=== PATIENT | female | born 1945 | race Caucasian/White ===

== ENCOUNTER → 2018-05-21 07:54 | Outpatient (CLI) | payer MEDICARE, OTHER, SELFPAY ==
[2018-05-21 09:15] LABS: Add Manual Diff / Slide Review NO; Basophils Percent Auto 0.9 % (0-2); Eosinophils Percent Auto 1.8 % (2-4); Hematocrit 39.5 % (36-46); Hemoglobin 13.3 g/dL (12.0-16.0); Mean Corpuscular HGB Conc 33.6 % (30-36); Mean Corpuscular Hemoglobin 29.6 PG (26-34); Monocytes Percent Auto 7.4 % (3-14); Neutrophils Absolute Auto 4000 /uL (3000-5900); Neutrophils Percent Auto 55.9 % (50-75); Platelet Count 181 X10^3/uL (150-400); Red Blood Cell Count 4.49 X10^6/uL (4.0-5.2); Red Cell Distribution Width 13.6 % (11.6-14.8); White Blood Cell Count 7.1 X10^3/uL (4.5-11.0)
[2018-05-21 09:41] LABS: Alanine Aminotransferase 24 IU/L (9-52); Albumin Globulin Ratio 1.3 (1.0-2.8); Alkaline Phosphatase 96 U/L (38-126); Aspartate Aminotransferase 21 IU/L (14-36); BUN Creatinine Ratio 37.8 (6-22); Bilirubin Total 0.4 mg/dL (0.2-1.3); Blood Urea Nitrogen 34 mg/dL (7-17); Calcium 10.2 mg/dL (8.4-10.2); Carbon Dioxide 32 mmol/L (22-32); Chloride 100 mmol/L (98-107); Cholesterol 150 mg/dL (140-199); Estimated Glomerular Filt Rate > 60.0 mL/min (>60); Glucose 102 mg/dL (80-110); HDL Cholesterol 55 mg/dL (40-60); HEMOLYSIS < 15 (0-50); LDL Cholesterol Calculated 71 mg/dL (<100); Sodium 140 mmol/L (137-145); Triglycerides 118 mg/dL (35-150)
[2018-05-21 10:14] LABS: Free T4, Direct Thyroxine 1.27 ng/dL (0.78-2.19)
[2018-05-21 10:28] LABS: Thyroid Stimulating Hormone 0.27 uIU/mL (0.47-4.68)
== END ==
PROVIDERS: PCP Family Medicine; Visit Provider Family Medicine
DX: E03.9 Hypothyroidism, unspecified (principal); E78.5 Hyperlipidemia, unspecified
CPT/HCPCS: 36415; 80053; 80061; 84439; 84443; 85025

== ENCOUNTER → 2018-10-02 08:53 | Outpatient (CLI) | payer MEDICARE, OTHER, SELFPAY ==
[2018-10-02 09:35] LABS: Add Manual Diff / Slide Review NO; Basophils Percent Auto 1.3 % (0-2); Hematocrit 40.1 % (36-46); Hemoglobin 13.3 g/dL (12.0-16.0); Lymphocytes Percent Auto 49.3 % (25-40); Mean Corpuscular HGB Conc 33.2 % (30-36); Mean Corpuscular Hemoglobin 30.7 PG (26-34); Mean Corpuscular Volume 92.3 fL (80-100); Monocytes Percent Auto 8.5 % (3-14); Neutrophils Absolute Auto 2000 /uL (1500-7000); Neutrophils Percent Auto 38.9 % (50-75); Platelet Count 197 X10^3/uL (150-400); Red Blood Cell Count 4.34 X10^6/uL (4.0-5.2)
[2018-10-02 09:49] LABS: Alanine Aminotransferase 32 IU/L (9-52); Albumin 4.1 g/dL (3.5-5.0); Albumin Globulin Ratio 1.4 (1.0-2.8); Alkaline Phosphatase 93 U/L (38-126); Aspartate Aminotransferase 25 IU/L (14-36); BUN Creatinine Ratio 26.3 (6-22); Bilirubin Total 0.4 mg/dL (0.2-1.3); Blood Urea Nitrogen 21 mg/dL (7-17); Calcium 9.7 mg/dL (8.4-10.2); Carbon Dioxide 30 mmol/L (22-32); Chloride 103 mmol/L (98-107); Cholesterol 158 mg/dL (140-199); Estimated Glomerular Filt Rate > 60.0 mL/min (>60); Glucose 105 mg/dL (80-110); HDL Cholesterol 49 mg/dL (40-60); HEMOLYSIS < 15 (0-50); LDL Cholesterol Calculated 84 mg/dL (<100); Potassium 4.3 mmol/L (3.4-5.1); Sodium 140 mmol/L (137-145); Total Protein 7.1 g/dL (6.3-8.2); Triglycerides 125 mg/dL (35-150)
[2018-10-02 10:25] LABS: Free T4, Direct Thyroxine 1.38 ng/dL (0.78-2.19)
[2018-10-02 10:39] LABS: Thyroid Stimulating Hormone 0.03 uIU/mL (0.47-4.68)
== END ==
PROVIDERS: PCP Family Medicine; Visit Provider Family Medicine
DX: E78.5 Hyperlipidemia, unspecified (principal); M85.9 Disorder of bone density and structure, unspecified; F41.1 Generalized anxiety disorder; R73.01 Impaired fasting glucose; D64.9 Anemia, unspecified; K22.70 Barrett's esophagus without dysplasia; E03.9 Hypothyroidism, unspecified; E05.00 Thyrotoxicosis with diffuse goiter without thyrotoxic crisis or storm; K21.9 Gastro-esophageal reflux disease without esophagitis
CPT/HCPCS: 36415; 80053; 80061; 84439; 84443; 85025

== ENCOUNTER → 2018-10-10 07:34 | Outpatient (CLI) | payer MEDICARE, OTHER, SELFPAY ==
--- NOTE | 2018-10-10 | DI.MG.S_ITS ---
BILATERAL DIGITAL SCREENING MAMMOGRAM 3D/2D WITH CAD: 10/10/2018 CLINICAL: Routine screening. Family history of breast cancer. Comparison is made to exams dated: 10/04/2017 mammogram, 10/17/2016 mammogram, 09/28/2015 mammogram, and 10/17/2014 mammogram - [facility]. There are scattered fibroglandular elements in both breasts. Current study was also evaluated with a Computer Aided Detection (CAD) system. There is a linear scar marker overlying the left breast. There also are benign vascular calcifications in the right breast. No significant masses, calcifications, or other findings are seen in either breast. There has been no significant interval change. IMPRESSION: There is no mammographic evidence of malignancy. A 1 year screening mammogram is recommended. This exam was interpreted at Station ID: [id number]. NOTE: For mammograms, a report in lay terms will be sent to the patient. Approximately 15% of breast malignancies will not be visualized mammographically. In the management of a palpable breast mass, a negative mammogram must not discourage biopsy of a clinically suspicious lesion. Electronically Signed By: Dariusz Mills M.D. ecl/:10/10/2018 11:09:32 letter sent: Normal Exam ACR BI-RADS Category 2: Benign Finding(s) 3342F
== END ==
PROVIDERS: PCP Family Medicine; Visit Provider Family Medicine
DX: Z12.31 Encounter for screening mammogram for malignant neoplasm of breast (principal); Z80.3 Family history of malignant neoplasm of breast
CPT/HCPCS: 77063; 77067

== ENCOUNTER → 2019-01-02 09:52 | Outpatient (CLI) | payer MEDICARE, OTHER, SELFPAY ==
[2019-01-02 10:51] LABS: Alanine Aminotransferase 33 IU/L (9-52); Albumin 4.2 g/dL (3.5-5.0); Albumin Globulin Ratio 1.3 (1.0-2.8); Alkaline Phosphatase 88 U/L (38-126); Aspartate Aminotransferase 27 IU/L (14-36); BUN Creatinine Ratio 26.3 (6-22); Bilirubin Total 0.6 mg/dL (0.2-1.3); Blood Urea Nitrogen 21 mg/dL (7-17); Carbon Dioxide 31 mmol/L (22-32); Chloride 103 mmol/L (98-107); Cholesterol 183 mg/dL (140-199); Estimated Glomerular Filt Rate > 60.0 mL/min (>60); Globulin 3.2 g/dL (1.7-4.1); Glucose 105 mg/dL (80-110); HDL Cholesterol 53 mg/dL (40-60); HEMOLYSIS 25 (0-50); LDL Cholesterol Calculated 97 mg/dL (<100); Potassium 4.5 mmol/L (3.4-5.1); Sodium 138 mmol/L (137-145); Total Protein 7.4 g/dL (6.3-8.2); Triglycerides 166 mg/dL (35-150)
[2019-01-02 12:15] LABS: Free T4, Direct Thyroxine 1.43 ng/dL (0.78-2.19); Hemoglobin A1C% w Est Avg Glu 5.8 % (4.0-6.0)
[2019-01-02 12:29] LABS: Thyroid Stimulating Hormone 0.05 uIU/mL (0.47-4.68)
== END ==
PROVIDERS: PCP Family Medicine; Visit Provider Family Medicine
DX: E78.5 Hyperlipidemia, unspecified (principal); E03.9 Hypothyroidism, unspecified; R73.01 Impaired fasting glucose
CPT/HCPCS: 36415; 80053; 80061; 83036; 84439; 84443

== ENCOUNTER → 2019-06-07 08:00 | Outpatient (CLI) | payer MEDICARE, OTHER, SELFPAY ==
[2019-06-07 08:30] LABS: Add Manual Diff / Slide Review NO; Basophils Absolute Auto 100 /uL (0-100); Basophils Percent Auto 1.3 % (0-2); Eosinophils Absolute Auto 100 /uL (0-450); Eosinophils Percent Auto 1.2 % (2-4); Hematocrit 40.1 % (36-46); Hemoglobin 13.1 g/dL (12.0-16.0); Lymphocytes Absolute Auto 2500 /uL (1100-4500); Lymphocytes Percent Auto 47.1 % (25-40); Mean Corpuscular HGB Conc 32.7 % (30-36); Mean Corpuscular Hemoglobin 29.6 PG (26-34); Mean Corpuscular Volume 90.6 fL (80-100); Monocytes Absolute Auto 400 /uL (0-900); Monocytes Percent Auto 6.6 % (3-14); Neutrophils Absolute Auto 2400 /uL (1500-7000); Neutrophils Percent Auto 43.8 % (50-75); Platelet Count 222 X10^3/uL (150-400); Red Blood Cell Count 4.42 X10^6/uL (4.0-5.2); Red Cell Distribution Width 14.3 % (11.6-14.8); White Blood Cell Count 5.4 X10^3/uL (4.5-11.0)
[2019-06-07 08:53] LABS: Hemoglobin A1C% w Est Avg Glu 5.9 % (4.0-6.0)
[2019-06-07 09:24] LABS: Alanine Aminotransferase 27 IU/L (9-52); Albumin Globulin Ratio 1.4 (1.0-2.8); Alkaline Phosphatase 100 U/L (38-126); Aspartate Aminotransferase 27 IU/L (14-36); BUN Creatinine Ratio 28.8 (6-22); Bilirubin Total 0.7 mg/dL (0.2-1.3); Blood Urea Nitrogen 23 mg/dL (7-17); Calcium 10.1 mg/dL (8.4-10.2); Carbon Dioxide 28 mmol/L (22-32); Chloride 102 mmol/L (98-107); Cholesterol 192 mg/dL (140-199); Estimated Glomerular Filt Rate > 60.0 mL/min (>60); Globulin 2.8 g/dL (1.7-4.1); Glucose 104 mg/dL (80-110); HDL Cholesterol 90 mg/dL (40-60); HEMOLYSIS < 15 (0-50); LDL Cholesterol Calculated 75 mg/dL (<100); Potassium 4.2 mmol/L (3.4-5.1); Sodium 138 mmol/L (137-145); Total Protein 6.8 g/dL (6.3-8.2); Triglycerides 133 mg/dL (35-150)
[2019-06-07 09:54] LABS: Cortisol AM (Before 10AM) 13.9 ug/dL (4.46-22.7)
[2019-06-07 09:55] LABS: TSH w/ Reflex to FT4 2.67 uIU/mL (0.47-4.68); Thyroid Stimulating Hormone 2.67 uIU/mL (0.47-4.68)
== END ==
PROVIDERS: PCP Family Medicine; Visit Provider Internal Medicine Endocrinology, Diabetes & Metabolism
DX: E03.9 Hypothyroidism, unspecified (principal); D64.9 Anemia, unspecified; R73.01 Impaired fasting glucose; E78.5 Hyperlipidemia, unspecified; R79.9 Abnormal finding of blood chemistry, unspecified; E89.0 Postprocedural hypothyroidism; R73.9 Hyperglycemia, unspecified; R53.82 Chronic fatigue, unspecified
CPT/HCPCS: 36415; 80053; 80061; 82533; 83036; 84443; 85025

== ENCOUNTER → 2019-10-03 07:33 | Outpatient (CLI) | payer MEDICARE, OTHER, SELFPAY ==
[2019-10-03 08:55] LABS: Thyroid Stimulating Hormone 2.85 uIU/mL (0.47-4.68)
== END ==
PROVIDERS: PCP Family Medicine; Visit Provider Internal Medicine Endocrinology, Diabetes & Metabolism
DX: R73.03 Prediabetes (principal); E89.0 Postprocedural hypothyroidism
CPT/HCPCS: 36415; 83036; 84443

== ENCOUNTER → 2019-10-14 11:20 | Outpatient (CLI) | payer MEDICARE, OTHER, SELFPAY ==
--- NOTE | 2019-10-14 | DI.MG.S_ITS ---
BILATERAL DIGITAL SCREENING MAMMOGRAM 3D/2D WITH CAD: 10/14/2019 CLINICAL: Routine screening. Family history of breast cancer. Comparison is made to exams dated: 10/10/2018 mammogram - [facility], 10/04/2017 mammogram, and 10/17/2016 mammogram - [facility]. There are scattered fibroglandular elements in both breasts. Current study was also evaluated with a Computer Aided Detection (CAD) system. There are benign vascular calcifications in the right breast. There also are benign post operative findings in the left breast. No significant masses, calcifications, or other findings are seen in either breast. There has been no significant interval change. IMPRESSION: There is no mammographic evidence of malignancy. A 1 year screening mammogram is recommended. This exam was interpreted at Station ID: [id number]. NOTE: For mammograms, a report in lay terms will be sent to the patient. Approximately 15% of breast malignancies will not be visualized mammographically. In the management of a palpable breast mass, a negative mammogram must not discourage biopsy of a clinically suspicious lesion. Electronically Signed By: Delano mendez/jose:10/15/2019 11:10:53 letter sent: Normal Exam ACR BI-RADS Category 2: Benign Finding(s) 3342F
== END ==
PROVIDERS: PCP Family Medicine; Visit Provider Family Medicine
DX: Z12.31 Encounter for screening mammogram for malignant neoplasm of breast (principal); Z80.3 Family history of malignant neoplasm of breast
CPT/HCPCS: 77063; 77067

== ENCOUNTER → 2019-10-24 13:47 | Outpatient (CLI) | payer MEDICARE, OTHER, SELFPAY | PROVIDERS: PCP Family Medicine; Visit Provider Family Medicine | DX: M85.852 Other specified disorders of bone density and structure, left thigh (principal); Z78.0 Asymptomatic menopausal state; E07.9 Disorder of thyroid, unspecified; G47.30 Sleep apnea, unspecified; G47.00 Insomnia, unspecified; Z90.722 Acquired absence of ovaries, bilateral; Z82.62 Family history of osteoporosis; Z87.898 Personal history of other specified conditions | CPT/HCPCS: 77080; 99214 ==

== ENCOUNTER → 2020-04-04 09:07 | Outpatient (CLI) | payer MEDICARE, OTHER, SELFPAY ==
[2020-04-04 11:03] LABS: Add Manual Diff / Slide Review NO; Basophils Absolute Auto 100 /uL (0-100); Basophils Percent Auto 1.2 % (0-2); Eosinophils Absolute Auto 100 /uL (0-450); Eosinophils Percent Auto 1.7 % (2-4); Hematocrit 38.7 % (36-46); Hemoglobin 12.9 g/dL (12.0-16.0); Lymphocytes Absolute Auto 2000 /uL (1100-4500); Lymphocytes Percent Auto 45.4 % (25-40); Mean Corpuscular HGB Conc 33.2 % (30-36); Mean Corpuscular Volume 90.4 fL (80-100); Monocytes Absolute Auto 400 /uL (0-900); Monocytes Percent Auto 8.8 % (3-14); Neutrophils Absolute Auto 1900 /uL (1500-7000); Neutrophils Percent Auto 42.9 % (50-75); Platelet Count 203 X10^3/uL (150-400); Red Blood Cell Count 4.28 X10^6/uL (4.0-5.2); Red Cell Distribution Width 13.8 % (11.6-14.8); White Blood Cell Count 4.5 X10^3/uL (4.5-11.0)
[2020-04-04 11:04] LABS: Hemoglobin A1C% w Est Avg Glu 6.2 % (4.0-6.0)
[2020-04-04 11:08] LABS: Alanine Aminotransferase 17 IU/L (<35); Albumin 4.2 g/dL (3.5-5.0); Albumin Globulin Ratio 1.5 (1.0-2.8); Alkaline Phosphatase 89 U/L (38-126); Aspartate Aminotransferase 27 IU/L (14-36); BUN Creatinine Ratio 33.8 (6-22); Bilirubin Total 0.6 mg/dL (0.2-1.3); Blood Urea Nitrogen 26 mg/dL (7-17); Calcium 10.4 mg/dL (8.4-10.2); Carbon Dioxide 29 mmol/L (22-32); Chloride 102 mmol/L (98-107); Cholesterol 170 mg/dL (140-199); Estimated Glomerular Filt Rate > 60.0 mL/min (>60); Globulin 2.8 g/dL (1.7-4.1); Glucose 107 mg/dL (80-110); HDL Cholesterol 73 mg/dL (40-60); HEMOLYSIS < 15 (0-50); LDL Cholesterol Calculated 78 mg/dL (<100); Potassium 4.8 mmol/L (3.4-5.1); Sodium 136 mmol/L (137-145); Triglycerides 95 mg/dL (35-150)
[2020-04-04 11:36] LABS: Thyroid Stimulating Hormone 3.37 uIU/mL (0.47-4.68)
[2020-04-05 18:39] LABS: COVID19 Sendout Not Detected (Not Detect)
== END ==
PROVIDERS: Physician Assistant; PCP Family Medicine; Referring Provider Family Medicine; Visit Provider Family Medicine
DX: Z01.812 Encounter for preprocedural laboratory examination (principal); E78.5 Hyperlipidemia, unspecified
CPT/HCPCS: 36415; 80053; 80061; 83036; 84439; 84443; 85025; 87635

== ENCOUNTER → 2020-08-26 11:06 | Outpatient (CLI) | payer MEDICARE, OTHER, SELFPAY ==
[2020-08-26 11:44] LABS: Add Manual Diff / Slide Review NO; Basophils Absolute Auto 0 /uL (0-100); Basophils Percent Auto 1.1 % (0-2); Eosinophils Absolute Auto 0 /uL (0-450); Hematocrit 38.8 % (36-46); Hemoglobin 12.5 g/dL (12.0-16.0); Lymphocytes Absolute Auto 1700 /uL (1100-4500); Lymphocytes Percent Auto 40.4 % (25-40); Mean Corpuscular HGB Conc 32.2 % (30-36); Mean Corpuscular Hemoglobin 28.7 PG (26-34); Monocytes Absolute Auto 400 /uL (0-900); Monocytes Percent Auto 8.6 % (3-14); Neutrophils Absolute Auto 2000 /uL (1500-7000); Neutrophils Percent Auto 48.9 % (50-75); Platelet Count 199 X10^3/uL (150-400); Red Blood Cell Count 4.35 X10^6/uL (4.0-5.2); Red Cell Distribution Width 15.2 % (11.6-14.8); White Blood Cell Count 4.1 X10^3/uL (4.5-11.0)
[2020-08-26 11:50] LABS: Hemoglobin A1C% w Est Avg Glu 6.4 % (4.0-6.0)
[2020-08-26 11:58] LABS: Alanine Aminotransferase 16 IU/L (<35); Albumin 4.3 g/dL (3.5-5.0); Albumin Globulin Ratio 1.4 (1.0-2.8); Alkaline Phosphatase 84 U/L (38-126); Aspartate Aminotransferase 23 IU/L (14-36); BUN Creatinine Ratio 25.3 (6-22); Bilirubin Total 0.6 mg/dL (0.2-1.3); Blood Urea Nitrogen 20 mg/dL (7-17); Calcium 9.6 mg/dL (8.4-10.2); Carbon Dioxide 31 mmol/L (22-32); Chloride 104 mmol/L (98-107); Cholesterol 158 mg/dL (140-199); Estimated Glomerular Filt Rate > 60.0 mL/min (>60); Globulin 3.1 g/dL (1.7-4.1); Glucose 116 mg/dL (80-110); HDL Cholesterol 62 mg/dL (40-60); HEMOLYSIS < 15 (0-50); LDL Cholesterol Calculated 74 mg/dL (<100); Potassium 4.2 mmol/L (3.4-5.1); Sodium 136 mmol/L (137-145); Total Protein 7.4 g/dL (6.3-8.2); Triglycerides 109 mg/dL (35-150)
[2020-08-26 12:32] LABS: Ferritin 14 ng/mL (11-264)
[2020-08-26 14:31] LABS: Thyroid Stimulating Hormone 1.85 uIU/mL (0.47-4.68)
== END ==
PROVIDERS: PCP Family Medicine; Referring Provider Family Medicine; Visit Provider Family Medicine
DX: E61.1 Iron deficiency (principal); R73.01 Impaired fasting glucose; E78.5 Hyperlipidemia, unspecified; E03.9 Hypothyroidism, unspecified; E05.00 Thyrotoxicosis with diffuse goiter without thyrotoxic crisis or storm; D64.9 Anemia, unspecified
CPT/HCPCS: 36415; 80053; 80061; 82728; 83036; 84439; 84443; 85025

== ENCOUNTER → 2020-10-15 10:29 | Outpatient (CLI) | payer MEDICARE, OTHER, SELFPAY ==
--- NOTE | 2020-10-15 | DI.MG.S_ITS ---
BILATERAL DIGITAL SCREENING MAMMOGRAM 3D/2D WITH CAD: 10/15/2020 CLINICAL: Routine screening. Family history of breast cancer. Comparison is made to exams dated: 10/14/2019 mammogram, 10/10/2018 mammogram - [facility], and 10/04/2017 mammogram - [facility]. There are scattered fibroglandular elements in both breasts. Current study was also evaluated with a Computer Aided Detection (CAD) system. There are benign vascular calcifications in the right breast. There also are benign post operative findings in the left breast. No significant masses, calcifications, or other findings are seen in either breast. There has been no significant interval change. IMPRESSION: BENIGN There is no mammographic evidence of malignancy. A 1 year screening mammogram is recommended. This exam was interpreted at Station ID: [id number]. NOTE: For mammograms, a report in lay terms will be sent to the patient. Approximately 15% of breast malignancies will not be visualized mammographically. In the management of a palpable breast mass, a negative mammogram must not discourage biopsy of a clinically suspicious lesion. Electronically Signed By: Bradley moreno/jose:10/15/2020 11:08:19 letter sent: Normal Exam ACR BI-RADS Category 2: Benign Finding(s) 3342F
== END ==
PROVIDERS: PCP Family Medicine; Referring Provider Family Medicine; Visit Provider Family Medicine
DX: Z12.31 Encounter for screening mammogram for malignant neoplasm of breast (principal)
CPT/HCPCS: 77063; 77067

== ENCOUNTER → 2020-12-10 10:01 | Outpatient (CLI) | payer MEDICARE, OTHER, SELFPAY ==
[2020-12-10 10:58] LABS: Add Manual Diff / Slide Review NO; Basophils Absolute Auto 100 /uL (0-100); Eosinophils Absolute Auto 100 /uL (0-450); Eosinophils Percent Auto 1.6 % (2-4); Hematocrit 37.7 % (36-46); Hemoglobin 12.5 g/dL (12.0-16.0); Lymphocytes Absolute Auto 2100 /uL (1100-4500); Lymphocytes Percent Auto 40.7 % (25-40); Mean Corpuscular HGB Conc 33.2 % (30-36); Mean Corpuscular Hemoglobin 29.4 PG (26-34); Mean Corpuscular Volume 88.8 fL (80-100); Monocytes Absolute Auto 400 /uL (0-900); Monocytes Percent Auto 7.9 % (3-14); Neutrophils Absolute Auto 2500 /uL (1500-7000); Neutrophils Percent Auto 48.8 % (50-75); Platelet Count 203 X10^3/uL (150-400); Red Blood Cell Count 4.24 X10^6/uL (4.0-5.2); Red Cell Distribution Width 15.6 % (11.6-14.8); White Blood Cell Count 5.2 X10^3/uL (4.5-11.0)
[2020-12-10 11:12] LABS: Alanine Aminotransferase 18 IU/L (<35); Albumin 4.2 g/dL (3.5-5.0); Albumin Globulin Ratio 1.4 (1.0-2.8); Alkaline Phosphatase 99 U/L (38-126); Aspartate Aminotransferase 26 IU/L (14-36); BUN Creatinine Ratio 24.3 (6-22); Bilirubin Total 0.4 mg/dL (0.2-1.3); Blood Urea Nitrogen 18 mg/dL (7-17); Calcium 9.7 mg/dL (8.4-10.2); Carbon Dioxide 30 mmol/L (22-32); Chloride 100 mmol/L (98-107); Cholesterol 168 mg/dL (140-199); Estimated Glomerular Filt Rate > 60.0 mL/min (>60); Globulin 2.9 g/dL (1.7-4.1); Glucose 112 mg/dL (80-110); HDL Cholesterol 59 mg/dL (40-60); HEMOLYSIS < 15 (0-50); LDL Cholesterol Calculated 77 mg/dL (<100); Potassium 4.2 mmol/L (3.4-5.1); Sodium 135 mmol/L (137-145); Total Protein 7.1 g/dL (6.3-8.2); Triglycerides 159 mg/dL (35-150)
[2020-12-10 11:14] LABS: Hemoglobin A1C% w Est Avg Glu 6.1 % (4.0-6.0)
[2020-12-10 11:47] LABS: Ferritin 26 ng/mL (11-264)
[2020-12-10 11:57] LABS: Thyroid Stimulating Hormone 3.63 uIU/mL (0.47-4.68)
== END ==
PROVIDERS: PCP Family Medicine; Referring Provider Family Medicine; Visit Provider Family Medicine
DX: E61.1 Iron deficiency (principal); R73.01 Impaired fasting glucose; E78.5 Hyperlipidemia, unspecified; E03.9 Hypothyroidism, unspecified; E05.00 Thyrotoxicosis with diffuse goiter without thyrotoxic crisis or storm; D64.9 Anemia, unspecified; G25.81 Restless legs syndrome; R00.1 Bradycardia, unspecified
CPT/HCPCS: 36415; 80053; 80061; 82728; 83036; 84443; 85025

== ENCOUNTER → 2021-06-02 07:47 | Outpatient (CLI) | payer MEDICARE, OTHER, SELFPAY ==
[2021-06-02 09:43] LABS: Add Manual Diff / Slide Review NO; Basophils Absolute Auto 0 /uL (0-100); Basophils Percent Auto 0.6 % (0-2); Eosinophils Absolute Auto 100 /uL (0-450); Eosinophils Percent Auto 1.6 % (2-4); Hematocrit 39.3 % (36-46); Hemoglobin 12.7 g/dL (12.0-16.0); Lymphocytes Absolute Auto 2200 /uL (1100-4500); Lymphocytes Percent Auto 39.9 % (25-40); Mean Corpuscular HGB Conc 32.3 % (30-36); Mean Corpuscular Hemoglobin 28.9 PG (26-34); Mean Corpuscular Volume 89.3 fL (80-100); Monocytes Absolute Auto 500 /uL (0-900); Monocytes Percent Auto 8.5 % (3-14); Neutrophils Absolute Auto 2800 /uL (1500-7000); Neutrophils Percent Auto 49.4 % (50-75); Platelet Count 195 X10^3/uL (150-400); Red Cell Distribution Width 14.6 % (11.6-14.8); White Blood Cell Count 5.6 X10^3/uL (4.5-11.0)
[2021-06-02 09:46] LABS: Alanine Aminotransferase 17 IU/L (<35); Albumin 4.1 g/dL (3.5-5.0); Albumin Globulin Ratio 1.4 (1.0-2.8); Alkaline Phosphatase 92 U/L (38-126); Aspartate Aminotransferase 28 IU/L (14-36); Bilirubin Total 0.6 mg/dL (0.2-1.3); Blood Urea Nitrogen 21 mg/dL (7-17); Calcium 9.2 mg/dL (8.4-10.2); Carbon Dioxide 28 mmol/L (22-32); Chloride 102 mmol/L (98-107); Cholesterol 185 mg/dL (140-199); Estimated Glomerular Filt Rate > 60.0 mL/min (>60); Globulin 2.9 g/dL (1.7-4.1); Glucose 115 mg/dL (80-110); HDL Cholesterol 61 mg/dL (40-60); LDL Cholesterol Calculated 98 mg/dL (<100); Potassium 3.9 mmol/L (3.4-5.1); Sodium 136 mmol/L (137-145); Triglycerides 129 mg/dL (35-150)
[2021-06-02 09:47] LABS: HEMOLYSIS 55 (0-50)
[2021-06-02 10:06] LABS: Free T4, Direct Thyroxine 1.09 ng/dL (0.78-2.19)
[2021-06-02 10:15] LABS: Ferritin 20 ng/mL (11-264)
[2021-06-02 10:20] LABS: Thyroid Stimulating Hormone 3.29 uIU/mL (0.47-4.68)
== END ==
PROVIDERS: PCP Family Medicine; Referring Provider Family Medicine; Visit Provider Family Medicine
DX: R73.01 Impaired fasting glucose (principal); E61.1 Iron deficiency; E78.5 Hyperlipidemia, unspecified
CPT/HCPCS: 36415; 80053; 80061; 82728; 83036; 84439; 84443; 85025

== ENCOUNTER → 2021-09-29 11:13 | Outpatient (CLI) | payer MEDICARE, OTHER, SELFPAY ==
[2021-09-29 13:54] LABS: COVID19 -Nasal RAPID Negative (Negative)
== END ==
PROVIDERS: PCP Family Medicine; Referring Provider Nurse Practitioner Family; Visit Provider Nurse Practitioner Family
DX: Z01.812 Encounter for preprocedural laboratory examination (principal); Z20.822 Contact with and (suspected) exposure to COVID-19
CPT/HCPCS: 87635; C9803

== ENCOUNTER 2021-10-01 13:08 | Day surgery (SDC) | payer MEDICARE, OTHER, SELFPAY ==
--- NOTE | 2021-10-01 | PATH_ITS ---
[facility] Accession Number: [id number] . 01 Material submitted: . PART A: duodenum - 3RD PORTION DUODENUM PART B: gastrointestinal site - ANTRUM PART C: gastrointestinal site - FUNDUS PART D: gastrointestinal site - BODY PART E: esophagus, E-G Junction - GE JUNCTION 6:00 PART F: esophagus, E-G Junction - GE JUNCTION 12:00 PART G: esophagus, E-G Junction - GE JUNCTION 3:00 PART H: esophagus, E-G Junction - GE JUNCTION 9:00 . 02 Diagnosis: A. Third Portion Of Duodenum, Biopsy: Duodenal mucosa with no diagnostic abnormality. Negative for active inflammation and features of celiac disease. . B. Antrum, Biopsy: Gastric antral-type mucosa with mild reactive changes. Negative for intestinal metaplasia and dysplasia. No Helicobacter pylori seen on immunohistochemistry. . C. Fundus, Biopsy: Gastric fundic-type mucosa with mild superficial chronic inflammation, polypoid foveolar hyperplasia, and changes suggestive of proton pump inhibitor therapy. Negative for intestinal metaplasia and dysplasia. No Helicobacter pylori seen on immunohistochemistry. . D. Body, Biopsy: Gastric fundic-type mucosa within normal limits. Negative for intestinal metaplasia and dysplasia. No Helicobacter pylori is seen. . E. GE Junction, 6 o'clock, Biopsy: Gastric-type mucosa with mild chronic inflammation. Negative for intestinal metaplasia and dysplasia. Hyperplastic squamous mucosa. . F. GE Junction, 12 o'clock, Biopsy: Gastric-type mucosa within normal limits. Negative for intestinal metaplasia and dysplasia. Squamous mucosa within normal limitis. . G. GE Junction, 3 o'clock, Biopsy: Gastric-type mucosa with mild chronic inflammation. Negative for intestinal metaplasia and dysplasia. A small portion of squamous mucosa within normal limits. . H. GE Junction, 9 o'clock, Biopsy: Squamous mucosa within normal limits. Negative for intestinal metaplasia and dysplasia. [facility] 10/05/2021 1540 Local . 02 Electronically signed: . Ling Montes De Oca MD, Pathologist NPI- [id number] . 01 Gross description: . Part A: 3RD PORTION DUODENUM: Received in formalin is 1 fragment(s) of ocampo, soft tissue measuring 0.4 x 0.3 x 0.3 cm submitted entirely in 1 cassette(s) Part B: ANTRUM: Received in formalin is 1 fragment(s) of ocampo, soft tissue measuring 0.5 x 0.3 x 0.2 cm submitted entirely in 1 cassette(s) Part C: FUNDUS: Received in formalin are 2 fragment(s) of ocampo, soft tissue measuring 0.4 x 0.3 x 0.3 cm to 0.2 x 0.2 x 0.2 cm submitted entirely in 1 cassette(s) Part D: BODY: Received in formalin is 1 fragment(s) of ocampo, soft tissue measuring 0.3 x 0.3 x 0.2 cm submitted entirely in 1 cassette(s) Part E: GE JUNCTION 6:00: Received in formalin is 1 fragment(s) of ocampo, soft tissue measuring 0.3 x 0.3 x 0.2 cm submitted entirely in 1 cassette(s) Part F: GE JUNCTION 12:00: Received in formalin is 1 fragment(s) of ocampo, soft tissue measuring 0.2 x 0.2 x 0.1 cm submitted entirely in 1 cassette(s) Part G: GE JUNCTION 3:00: Received in formalin is 1 fragment(s) of ocampo, soft tissue measuring 0.3 x 0.3 x 0.2 cm submitted entirely in 1 cassette(s) Part H: GE JUNCTION 9:00: Received in formalin is 1 fragment(s) of ocampo, soft tissue measuring 0.3 x 0.3 x 0.1 cm submitted entirely in 1 cassette(s) /[facility]BJ 10/02/2021 1229 Local . 02 Microscopic: . An immunohistochemical stain was performed to evaluate for Helicobacter organisms and is negative. The control stain showed appropriate reactivity. . * This test was developed and its performance characteristics determined by [facility]. It has not been cleared or approved by the U.S. Food and Drug Administration. The FDA has determined that such clearance or approval is not necessary. This test is used for clinical purposes. It should not be regarded as investigational or for research. . 02 Pathologist provided ICD-10: Z12.11, K22.70 . 02 CPT . 280333, 401832, 783977, 305269, 536258, 984756, 357742, 282305, X91242 Performed at: 01 [facility] [address] [id number] MD Bradley Dumont MD Phone: [phone] Performed at: 02 [facility] [id number] [place] [id number] MD Chantale Tsai MD Phone: [phone]
--- NOTE | 2021-10-01 12:07 | P.HP_ITS ---
History of Present Illness History of Present Illness Date Patient Seen: 10/01/21 Time Patient Seen: 12:07 Chief complaint: SDC Narrative: 76 year old female comes in today for consideration of a diagnostic EGD and screening colonoscopy. Last colonoscopy in 2010 was indicated for anemia and heme-positive stool; internal hemorrhoids without ulceration noted, 10 year recall. Patient diagnosed with distal esophageal Martinez's metaplasia in 2013, last EGD in 2015 was notable for a large hiatal hernia, irregular GE junction with possible simple prolapse of gastric mucosa at the GE junction (biopsies showed only chronic inflammation and reactive changes with no metaplasia, dysplasia, or carcinoma), fundic gland polyps, and mild distal gastritis near the pylorus. Biopsies negative for H.pylori. Patient is currently taking omeprazole and is completely asymptomatic except when she eats spicy foods. There have been no lower GI symptoms suggesting disease such as change in bowel habits, bleeding, abdominal pain or anemia. There's been no family history of colon cancer or colon polyps. Overall health issues have been stable, including no major cardiac events for at least 6 weeks. PCP: Dr. 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 Obesity (BMI 30-39.9) Obstructive sleep apnea Periodic limb movement disorder (PLMD) Snoring Family & Social History Social History: household members spouse lives independently Yes caregiver/support person No Tobacco & Substance use: Smoking Status Never smoker alcohol intake current Meds Home Medications and Allergies Home Medications Medication Instructions Recorded Confirmed Type atorvastatin 10 mg tablet 5 mg PO DAILY tab 08/07/20 10/01/21 History ferrous sulfate 325 mg (65 mg 325 mg PO .COMPLEX 08/07/20 10/01/21 History iron) tablet levothyroxine 88 mcg capsule 88 mcg PO DAILY 08/07/20 10/01/21 History metformin 500 mg tablet,extended 500 mg PO BID 08/07/20 10/01/21 History release 24hr omeprazole 20 mg capsule,delayed 20 mg PO BID 08/07/20 10/01/21 History release sertraline 50 mg tablet 50 mg PO DAILY 08/07/20 10/01/21 History calcium carbonate 500 mg-vitamin 1 tab PO DAILY 04/22/21 10/01/21 History D3 5 mcg (200 unit) tablet omega-3 fatty acids 1,000 mg 1,000 mg PO DAILY 04/22/21 10/01/21 History capsule (Fish Oil Concentrate) Allergies Allergy/AdvReac Type Severity Reaction Status Date / Time adhesive [ADHESIVE] AdvReac Mild REDNESS Verified 10/01/21 13:59 TERAMYCIN Allergy Severe Fainting Uncoded 10/01/21 14:00 Review of Systems Review of Systems Narrative: All remaining ROS were reviewed and negative except as addressed. Exam Narrative Exam Narrative: GENERAL: Alert and oriented, appearing stated age and in no acute distress. HEENT: Head normocephalic/atraumatic. Extraocular movements intact. LUNGS: Clear to ausculation bilaterally, no wheezes, rhonchi or rales. CV: Normal S1 and S2 with regular rate and rhythm, no audible murmurs, rubs or gallops. ABDOMEN: Soft, non-tender, non-distended, no organomegaly. Positive bowel sounds. EXTREMITIES: No clubbing, cyanosis, or edema. NEURO: Cranial nerves II through XII grossly intact, no focal deficits. PSYCH: Alert and oriented x 3. SKIN: No concerning lesions. Assessment & Plan Assessment & Plan narrative: 1. History of Martinez's esophagus 2. GERD 3. Hiatal hernia 4. Screening for colon cancer Plan for diagnostic EGD and colonoscopy. The nature and character of the procedure as well as anticipated results were discussed. The possibility of not completing the procedure was also discussed. Possible complications including aspiration pneumonia, bleeding, perforation and reaction to medications either for sedation or preparation and missed lesions were discussed. Questions were answered and proceeding to the colonoscopy was elected. Informed consent signed. I sincerely appreciate the referral allowing me to participate in this patient's care. Please contact me with any questions or concerns.
--- NOTE | 2021-10-01 12:24 | P.OP.EGD_ITS ---
Operative Date/Time/Diagnoses Date of procedure: 10/01/21 Procedure Notes SCOAP/Timeout: 2:45 p.m. Procedure in detail: ENDOSCOPIST: Niki Bunch MD Sedation RN: Patricia Chopra RN Sedation start time: 2:46 p.m. Sedation end time: 3:14 p.m. PROCEDURE: EGD with biopsy REFERRING PROVIDER: Dr. Benedict INDICATIONS: 1. History of Martinez's esophagus 2. GERD 3. Hiatal hernia MEDICATION: Incremental doses of Versed and fentanyl until an appropriate level of sedation was achieved. ASA Ratin DURATION OF PROCEDURE: 30 minutes. COMPLICATIONS: None. LIMITATIONS: None EXTENT OF PROCEDURE: Third portion of the Duodenum. PROCEDURE: The high-definition gastroduodenoscope was introduced into the posterior oropharynx under direct vision after Hurricaine spray, noted IV sedation, and proper informed consent. The esophagus was identified and intubated under direct visualization. The scope was quickly passed through the esophagus and into the fundus of the stomach. A clear fundal pool was aspirated. The scope was then advanced to the antrum and the pylorus was identified. The scope was passed through the pylorus into the second and third portions of the duodenum. Superficial hyperemesis noted in the duodenum, duodenal bulb and pyl oric channel, targeted biopsies taken x2. The antrum and distal body also had superficial hyperemesis, targeted biopsy taken x4. J maneuver was produced. A few scattered fundic gland polyps were seen and photographed. Otherwise, no abnormalities were noted of the proximal body, fundus or cardia; random biopsy taken x2. A large hiatal hernia was noted. Scope was broken out of the J maneuver and the remainder of the stomach was carefully inspected upon withdrawal and was normal. The stomach was carefully deflated of all air on withdrawal. The distal esophagus was carefully inspected and there was again seen a redundant area consistent with a possible simple prolapse of gastric mucosa, targeted biopsy taken. Z-line was noted to be irregular and 4 quadrant biopsies taken. Remainder of the esophagus was normal upon withdrawal. The larynx and vocal cords appeared to be unremarkable. IMPRESSION: 1. Duodenitis 2. Gastritis, antrum, body 3. Possible simple prolapse of gastric mucosa, distal esophagus 4. Irregular Z-line PLAN: 1. Follow-up in clinic status post pathology results. The possibility of missed lesion including a malignancy was discussed prior with the patient. Potential alarm symptoms have been discussed and should be reported by the patient immediately.
--- NOTE | 2021-10-01 12:25 | PM.OP.COLON ---
Operative Date/Time/Diagnoses Date of procedure: 10/01/21 Procedure Notes SCOAP/Timeout: 2:45 p.m. Procedure in detail: ENDOSCOPIST: Niki Bunch MD Sedation RN: Patricia Chopra RN Sedation start time: 3:18 p.m. Sedation end time: 3:36 p.m. PROCEDURE: Colonoscopy INDICATIONS: 1. Screening for colon cancer 2. History of internal hemorrhoids MEDICATION: Levsin 0.125 mg sublingual, incremental doses of Versed and fentanyl until appropriate level sedation achieved. ASA CLASS: 2 CECAL WITHDRAWAL TIME: 7 minutes COMPLICATIONS: None. EXTENT OF PROCEDURE: Cecum. QUALITY OF PREP: Good with portions of liquid stool. PROCEDURE: Prior to insertion of the colonoscope, a digital rectal examination was accomplished with circumferential palpation of the distal rectal mucosa without significant findings being noted. The high-definition pediatric colonoscope was passed into the rectum in the usual fashion and advanced over to the cecum without difficulty. The ileocecal valve, appendiceal stoma, and medial wall all could be inspected and no abnormalities were seen. ASCENDING COLON: As the colonoscope was withdrawn, care was taken to expose and inspect the haustral folds and no abnormalities were seen. HEPATIC FLEXURE: Normal, no polyps, diverticula or other abnormalities. TRANSVERSE COLON: Normal, no polyps, diverticula or other abnormalities. DESCENDING COLON: Normal, no polyps, diverticula or other abnormalities. SIGMOID COLON: Normal, no polyps, diverticula or other abnormalities. RECTUM: Normal. J maneuver was produced. There was no significant perianal disease. The J maneuver was broken. The remainder of the rectum was inspected and there was minor internal hemorrhoid disease, nonthrombosed. The scope was withdrawn. IMPRESSION: 1. Normal colonoscopy 2. Internal hemorrhoids, nonthrombosed PLAN: 1. Secondary to patient's age, this can be patient's last screening colonoscopy. The possibility of a missed lesion including a malignancy has been discussed with the patient previously. Potential alarm symptoms have been discussed and should be reported immediately.
[2021-10-01] MEDS: HYOSCYAMINE 0.125 MG TABLET PO (13:31)
[2021-10-01 13:33] VITALS: BP 117/72; PULSE 59; RESP 18; TEMP 36.2; O2SAT 97
[2021-10-01 13:37] VITALS: BMI 31.2
[2021-10-01] MEDS: LACTATED RINGERS 1,000 ML 200 ML IV (14:08)
[2021-10-01] MEDS: MIDAZOLAM 5 MG/5 ML VIAL IV (14:32)
[2021-10-01] MEDS: fentaNYL 250 MCG/5 ML INJ IV (14:33)
[2021-10-01] MEDS: LIDOCAINE 4% SOLN 50 ML 20 ML TOP (14:33)
[2021-10-01 15:42] VITALS: BP 130/83; PULSE 64; RESP 16; TEMP 36.5; O2SAT 96
[2021-10-01 15:47] VITALS: BP 119/76; PULSE 62; RESP 15; O2SAT 96
[2021-10-01] MEDS: LIDOCAINE JELLY 2% 5 ML 1 APPLIC TOP (15:47)
[2021-10-01 15:51] VITALS: BP 142/69; PULSE 66; RESP 95; O2SAT 18
[2021-10-01 15:56] VITALS: BP 124/82; PULSE 59; RESP 16; TEMP 36.3; O2SAT 96
[2021-10-01 16:38] VITALS: BP 118/78; PULSE 66; RESP 16; TEMP 36.6; O2SAT 98
== END 2021-10-01 16:40 | disposition home or self-care (01) ==
PROVIDERS: PCP Family Medicine; Referring Provider Student in an Organized Health Care Education/Training Program; Visit Provider Student in an Organized Health Care Education/Training Program
PROC: 0DJ08ZZ Inspection of Upper Intestinal Tract, Via Natural or Artificial Opening Endoscopic (ICD-10-PCS; CPT 43235; principal; 2021-10-01 14:30)
PROC: 0DJD8ZZ Inspection of Lower Intestinal Tract, Via Natural or Artificial Opening Endoscopic (ICD-10-PCS; CPT 45378; 2021-10-01 14:30)
DX: Z12.11 Encounter for screening for malignant neoplasm of colon (principal); Z87.19 Personal history of other diseases of the digestive system; K21.00 Gastro-esophageal reflux disease with esophagitis, without bleeding; E03.9 Hypothyroidism, unspecified; G47.33 Obstructive sleep apnea (adult) (pediatric); D64.9 Anemia, unspecified; F41.9 Anxiety disorder, unspecified; K44.9 Diaphragmatic hernia without obstruction or gangrene; K29.80 Duodenitis without bleeding; K64.8 Other hemorrhoids; K29.50 Unspecified chronic gastritis without bleeding
CPT/HCPCS: 43239; G0121; J2250; J3010

== ENCOUNTER → 2021-10-18 09:41 | Outpatient (CLI) | payer MEDICARE, OTHER, SELFPAY ==
--- NOTE | 2021-10-18 | DI.MG.S_ITS ---
BILATERAL DIGITAL SCREENING MAMMOGRAM 3D/2D WITH CAD: 10/18/2021 CLINICAL: Routine screening. Family history of breast cancer. Comparison is made to exams dated: 10/15/2020 mammogram, 10/14/2019 mammogram, 10/10/2018 mammogram - [facility], and 10/17/2014 mammogram - [facility]. There are scattered fibroglandular elements in both breasts. Current study was also evaluated with a Computer Aided Detection (CAD) system. There are benign calcifications in the left breast. There also are benign vascular calcifications in the right breast. Additionally, there are benign post operative findings in the left breast. No significant masses, calcifications, or other findings are seen in either breast. There has been no significant interval change. IMPRESSION: BENIGN There is no mammographic evidence of malignancy. A 1 year screening mammogram is recommended. This exam was interpreted at Station ID: [id number]. NOTE: For mammograms, a report in lay terms will be sent to the patient. Approximately 15% of breast malignancies will not be visualized mammographically. In the management of a palpable breast mass, a negative mammogram must not discourage biopsy of a clinically suspicious lesion. Electronically Signed By: Delano mendez/jose:10/18/2021 10:58:42 letter sent: Normal Exam ACR BI-RADS Category 2: Benign Finding(s) 3342F
== END ==
PROVIDERS: PCP Family Medicine; Referring Provider Family Medicine; Visit Provider Family Medicine
DX: Z12.31 Encounter for screening mammogram for malignant neoplasm of breast (principal); Z80.3 Family history of malignant neoplasm of breast
CPT/HCPCS: 77063; 77067

== ENCOUNTER → 2021-11-18 10:29 | Outpatient (CLI) | payer MEDICARE, OTHER, SELFPAY ==
[2021-11-18 12:13] LABS: Add Manual Diff / Slide Review NO; Basophils Absolute Auto 0 /uL (0-100); Basophils Percent Auto 1.1 % (0-2); Eosinophils Absolute Auto 100 /uL (0-450); Eosinophils Percent Auto 1.1 % (2-4); Hematocrit 40.5 % (36-46); Hemoglobin 13.3 g/dL (12.0-16.0); Lymphocytes Absolute Auto 1700 /uL (1100-4500); Lymphocytes Percent Auto 37.6 % (25-40); Mean Corpuscular HGB Conc 32.9 % (30-36); Mean Corpuscular Hemoglobin 29.4 PG (26-34); Mean Corpuscular Volume 89.5 fL (80-100); Monocytes Absolute Auto 400 /uL (0-900); Monocytes Percent Auto 7.6 % (3-14); Neutrophils Absolute Auto 2500 /uL (1500-7000); Neutrophils Percent Auto 52.6 % (50-75); Platelet Count 187 X10^3/uL (150-400); Red Blood Cell Count 4.52 X10^6/uL (4.0-5.2); Red Cell Distribution Width 14.6 % (11.6-14.8); White Blood Cell Count 4.7 X10^3/uL (4.5-11.0)
[2021-11-18 12:20] LABS: Hemoglobin A1C% w Est Avg Glu 6.3 % (4.0-6.0)
[2021-11-18 13:07] LABS: Alanine Aminotransferase 22 IU/L (<35); Albumin 4.5 g/dL (3.5-5.0); Albumin Globulin Ratio 1.5 (1.0-2.8); Alkaline Phosphatase 77 U/L (38-126); Aspartate Aminotransferase 30 IU/L (14-36); BUN Creatinine Ratio 28.8 (6-22); Bilirubin Total 0.6 mg/dL (0.2-1.3); Blood Urea Nitrogen 21 mg/dL (7-17); Calcium 9.8 mg/dL (8.4-10.2); Carbon Dioxide 30 mmol/L (22-32); Chloride 100 mmol/L (98-107); Cholesterol 146 mg/dL (140-199); Estimated Glomerular Filt Rate > 60.0 mL/min (>60); Glucose 111 mg/dL (80-110); HDL Cholesterol 54 mg/dL (40-60); HEMOLYSIS 17 (0-50); LDL Cholesterol Calculated 71 mg/dL (<100); Potassium 4.2 mmol/L (3.4-5.1); Sodium 136 mmol/L (137-145); Total Protein 7.5 g/dL (6.3-8.2); Triglycerides 106 mg/dL (35-150)
[2021-11-18 13:21] LABS: Free T4, Direct Thyroxine 1.39 ng/dL (0.78-2.19)
[2021-11-18 13:40] LABS: Ferritin 36 ng/mL (11-264)
== END ==
PROVIDERS: PCP Family Medicine; Referring Provider Family Medicine; Visit Provider Family Medicine
DX: E78.1 Pure hyperglyceridemia (principal); R73.01 Impaired fasting glucose; E61.1 Iron deficiency; E78.5 Hyperlipidemia, unspecified
CPT/HCPCS: 36415; 80053; 80061; 82728; 83036; 84439; 84443; 85025

== ENCOUNTER → 2022-01-17 11:28 | Outpatient (CLI) | payer MEDICARE, OTHER, SELFPAY | PROVIDERS: PCP Family Medicine; Referring Provider Family Medicine; Visit Provider Family Medicine | DX: Z78.0 Asymptomatic menopausal state; Z13.820 Encounter for screening for osteoporosis; M85.89 Other specified disorders of bone density and structure, multiple sites | CPT/HCPCS: 77080 ==

== ENCOUNTER → 2022-05-26 07:35 | Outpatient (CLI) | payer MEDICARE, OTHER, SELFPAY ==
[2022-05-26 08:50] LABS: Hematocrit 39.1 % (36-46); Hemoglobin 12.9 g/dL (12.0-16.0); Mean Corpuscular HGB Conc 33.1 % (30-36); Mean Corpuscular Hemoglobin 29.3 PG (26-34); Mean Corpuscular Volume 88.5 fL (80-100); Platelet Count 201 X10^3/uL (150-400); Red Blood Cell Count 4.42 X10^6/uL (4.0-5.2); Red Cell Distribution Width 14.4 % (11.6-14.8); White Blood Cell Count 5.4 X10^3/uL (4.5-11.0)
[2022-05-26 08:57] LABS: Hemoglobin A1C% w Est Avg Glu 6.5 % (4.0-6.0)
[2022-05-26 09:25] LABS: Alanine Aminotransferase 21 IU/L (<35); Albumin 3.8 g/dL (3.5-5.0); Albumin Globulin Ratio 1.4 (1.0-2.8); Alkaline Phosphatase 118 U/L (38-126); Aspartate Aminotransferase 25 IU/L (14-36); BUN Creatinine Ratio 28.6 (6-22); Bilirubin Total 0.4 mg/dL (0.2-1.3); Blood Urea Nitrogen 22 mg/dL (7-17); Calcium 9.5 mg/dL (8.4-10.2); Carbon Dioxide 31 mmol/L (22-32); Chloride 103 mmol/L (98-107); Cholesterol 160 mg/dL (140-199); Estimated Glomerular Filt Rate > 60 mL/min (>60); Globulin 2.7 g/dL (1.7-4.1); Glucose 112 mg/dL (80-110); HDL Cholesterol 60 mg/dL (40-60); HEMOLYSIS < 15 (0-50); LDL Cholesterol Calculated 73 mg/dL (<100); Potassium 4.3 mmol/L (3.4-5.1); Sodium 137 mmol/L (137-145); Total Protein 6.5 g/dL (6.3-8.2); Triglycerides 136 mg/dL (35-150)
[2022-05-26 09:56] LABS: TSH w/ Reflex to FT4 9.28 uIU/mL (0.47-4.68)
[2022-05-26 09:58] LABS: Ferritin 30 ng/mL (11-264)
[2022-05-26 11:12] LABS: Free T4, Direct Thyroxine 0.97 ng/dL (0.78-2.19)
== END ==
PROVIDERS: PCP Family Medicine; Referring Provider Family Medicine; Visit Provider Family Medicine
DX: R73.01 Impaired fasting glucose (principal); D64.9 Anemia, unspecified; E03.9 Hypothyroidism, unspecified; E78.5 Hyperlipidemia, unspecified
CPT/HCPCS: 36415; 80053; 80061; 82728; 83036; 84439; 84443; 85027

== ENCOUNTER → 2022-07-19 12:51 | Outpatient (CLI) | payer MEDICARE, OTHER, SELFPAY ==
[2022-07-19 14:24] LABS: Add Manual Diff / Slide Review NO; Basophils Absolute Auto 0 /uL (0-100); Basophils Percent Auto 0.8 % (0-2); Eosinophils Absolute Auto 100 /uL (0-450); Eosinophils Percent Auto 1.2 % (2-4); Hematocrit 39.8 % (36-46); Hemoglobin 13.1 g/dL (12.0-16.0); Lymphocytes Absolute Auto 1800 /uL (1100-4500); Lymphocytes Percent Auto 30.9 % (25-40); Mean Corpuscular Hemoglobin 29.3 PG (26-34); Mean Corpuscular Volume 88.8 fL (80-100); Monocytes Absolute Auto 400 /uL (0-900); Monocytes Percent Auto 6.7 % (3-14); Neutrophils Absolute Auto 3600 /uL (1500-7000); Neutrophils Percent Auto 60.4 % (50-75); Platelet Count 179 X10^3/uL (150-400); Red Blood Cell Count 4.48 X10^6/uL (4.0-5.2); White Blood Cell Count 5.9 X10^3/uL (4.5-11.0)
[2022-07-19 14:42] LABS: BUN Creatinine Ratio 23.1 (6-22); Blood Urea Nitrogen 21 mg/dL (7-17); Calcium 9.4 mg/dL (8.4-10.2); Carbon Dioxide 28 mmol/L (22-32); Chloride 101 mmol/L (98-107); Estimated Glomerular Filt Rate > 60 mL/min (>60); Glucose 103 mg/dL (80-110); HEMOLYSIS < 15 (0-50); Potassium 4.2 mmol/L (3.4-5.1); Sodium 137 mmol/L (137-145)
[2022-07-19 14:58] LABS: Free T3, Triiodothyronine Free 3.45 pg/mL (2.77-5.27); Free T4, Direct Thyroxine 1.49 ng/dL (0.78-2.19)
[2022-07-19 15:12] LABS: Thyroid Stimulating Hormone 2.63 uIU/mL (0.47-4.68)
== END ==
PROVIDERS: PCP Family Medicine; Referring Provider Family Medicine; Visit Provider Family Medicine
DX: E03.9 Hypothyroidism, unspecified (principal); R73.01 Impaired fasting glucose; F41.1 Generalized anxiety disorder; E87.1 Hypo-osmolality and hyponatremia; D64.9 Anemia, unspecified
CPT/HCPCS: 36415; 80048; 84439; 84443; 84481; 85025

== ENCOUNTER 2022-10-03 15:15 | Outpatient (RCR) | payer MEDICARE, OTHER, SELFPAY ==
--- NOTE | 2022-07-28 17:25 | PT.OIE ---
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 Obesity (BMI 30-39.9) Obstructive sleep apnea Periodic limb movement disorder (PLMD) Snoring Visit Care Team Role Provider Type Sally Benedict MD Attending Provider Physician Primary Care Provider Referring Provider Specialty: [facility] Address: [address] [place] [address], [facility] Email: [email or web address] Physical Therapy Initial Evaluation PT-OP-A Visit Information Start: 07/28/22 08:51 Freq: Status: Active Protocol: Document 07/28/22 17:25 [facility] (Rec: 07/28/22 17:40 [facility] [id number]) Out-Patient Physical Therapy Visit Information Visit Information Visit Type Initial Evaluation Visit Start Time 15:15 Visit Stop Time 16:02 Total Visit Minutes 47 Visit Number 1 Evaluation Information Evaluation Date 07/28/22 PT-OP-B Current Condition Start: 07/28/22 08:51 Freq: Status: Active Protocol: Document 07/28/22 17:25 [facility] (Rec: 07/28/22 17:40 [facility] [id number]) Current Condition History of Current Condition Onset Date FEBRUARY 2022 Current Complaints right lateral and posterior hip pain History of Current Condition Reports february 2022 was doing a lot of hiking and felt onset posterior thigh pain right. Spent the rest of the summer in pain, tried ice and heat, some rest. Unable to alternate feet on stairs and leaned heavily to the right. Pain worse with sitting or walking uneven ground. Also reports prior fall onto lateral hip right and has had residual pain ever since. Reports she has had some improvement in her pain but still has pain especially with gait on stairs or uneven ground and has difficulty moving from sit to stand, feels very weak. Prior Treatments and Tests no imaging Future Testing and Treatments Planned to return to physician if PT not helpful Treatment Goals Patient/Caregiver Goals decrease her pain, improve her strength and tolerance for activity especially hiking and walking on uneven surfaces. PT-OP-C Subjective Start: 07/28/22 08:51 Freq: Status: Active Protocol: Document 07/28/22 17:25 [facility] (Rec: 08/01/22 09:41 [facility] [id number]) OP-PT Pain Assessment Pain Assessment Grid Paper Pain Assessment Grid Completed Yes Location right posterior and lateral hip Intensity 6 Description Aching,Tender,Tightness,With Movement Frequency Frequent Pain Aggravating Factors Changing Position,Exercise, Standing,Walking Pain Alleviating Factors Inactivity PT-OP-G Mobility & Gait Start: 07/28/22 08:51 Freq: Status: Active Protocol: Document 07/28/22 17:25 [facility] (Rec: 08/01/22 09:41 [facility] [id number]) OP Gait Assessment Gait Gait Assistance Required: Independent Assistive Devices Assistive Device None Gait Deviations General Gait Pattern Antalgic,Decreased Stride Length Stair Climbing Evaluation Technique/Endurance Stair Climbing Direction Ascend and Descend Stair Climbing Technique Step to Step PT-OP-H Neuro Start: 07/28/22 08:51 Freq: Status: Active Protocol: Document 07/28/22 17:25 [facility] (Rec: 08/01/22 09:41 [facility] [id number]) Sensation Evaluation Gross Sensation Gross Sensation WNL PT-OP-J Posture/Palpation/Skin Start: 07/28/22 08:51 Freq: Status: Active Protocol: Document 07/28/22 17:25 [facility] (Rec: 08/01/22 09:41 [facility] [id number]) Posture Evaluation Position Standing Head/C-Spine Posture Forward Head T-Spine Posture Increased Kyphosis L-Spine Posture Increased Lordosis Shoulder Posture (L) Rounded,(R) Rounded Scapula Posture (L) Protracted,(R) Protracted Arm Posture (L) Internally Rotated,(R) Internally Rotated Pelvis Posture Anteriorly Tilted Weight Distribution Weight Shifted Right Palpation Assessment Location HS Palpation Location right Palpation Findings Tenderness gr trochanter Palpation Location right Palpation Findings Tenderness PSIS Palpation Location non tender PT-OP-K Range of Motion Start: 07/28/22 08:51 Freq: Status: Active Protocol: Document 07/28/22 17:25 [facility] (Rec: 08/01/22 09:41 [facility] [id number]) Lumbar Spine Range of Motion Lumbar Spine Active Comments WFL Hip Goniometric Range of Motion Hip Right Hip ROM WFL No Flexion w/Knee Flexed 110 Straight Leg Raise 65 Extension 10 Abduction 25 Internal Rotation 20 External Rotation 55 Left Hip ROM WFL Yes Hip ROM Limitations Hip ROM Limitations Soft Tissue Tightness,Pain Knee Goniometric Range of Motion Knee jane Knee ROM WFL Yes PT-OP-M Strength Start: 07/28/22 08:51 Freq: Status: Active Protocol: Document 07/28/22 17:25 [facility] (Rec: 08/01/22 09:41 [facility] [id number]) Hip Strength Hip Manual Muscle Testing Right Flexion (L2) 4 Good Extension (S1) 4 Good Adduction 4+ Good+ External Rotation 4- Good- Internal Rotation 4 Good Left Flexion (L2) 4+ Good+ Extension (S1) 4+ Good+ Abduction 4+ Good+ Adduction 4+ Good+ External Rotation 4 Good Internal Rotation 4+ Good+ Knee Strength Knee Manual Muscle Testing Right Flexion (S2) 4 Good Extension (L3) 4 Good Left Flexion (S2) 4+ Good+ Extension (L3) 4+ Good+ PT-OP-Q Treatments Start: 07/28/22 08:51 Freq: Status: Active Protocol: Document 07/28/22 17:25 [facility] (Rec: 08/01/22 09:41 [facility] [id number]) Therapeutic Exercises Supine Exercises heelslide Comments HEP PPT Comments HEP glute set Comments HEP HS stretch Comments HEP SKTC Comments HEP Self-Care/Home Management Treatment Education Patient Education Home Exercise Program,Pain Management Other Education HEP HO issued Activities Self-Care/Home Management Activities bed positioning, HOT issued PT-OP-R Modalities Start: 07/28/22 08:51 Freq: Status: Active Protocol: Document 07/28/22 17:25 [facility] (Rec: 08/01/22 09:41 [facility] [id number]) Hot Pack/Cold Pack Treatment Hot Pack Location right hamstring Patient Position Hooklying Treatment Duration (minutes) 15 Patient Tolerance Good PT-OP-T Assessment and Plan Start: 07/28/22 08:51 Freq: Status: Active Protocol: Document 07/28/22 17:25 [facility] (Rec: 07/28/22 17:40 [facility] [id number]) Physical Therapy Assessment Rehab Potential Rehabilitation Potential Good Evaluation Complexity Number of Personal Factors/Comorbidities 1-2 Number of Body Systems Impaired 3 Clinical Presentation at Evaluation Evolving Impairments Impairments Activity Tolerance,Gait,Pain, Strength Goals Three Impairment weakness in right hip and knee Short Term Goal (STG) patient to be instructed in HEP to address impairments and support therapy activities STG Duration 08/26/22 Boiler Inspector Goal (LTG) Patient will be independent and compliant with HEP and demonstrate LE strength improvement to 5/5 to allow her to return to all prior activities with ease LTG Duration 09/26/22 Two Impairment gait dysfunction/activity tolerance Impairment unable to ambulate on uneven surfaces without pain Short Term Goal (STG) Patient will be able to ambulate on stairs with alternating pattern with minimal to no pain STG Duration 08/26/22 Boiler Inspector Goal (LTG) Patient will be able to resume hiking on uneven ground with minimal to no pain LTG Duration 09/26/22 One Impairment pain right lateral and posterior hip limiting mobility Short Term Goal (STG) Decrease pain by at least 50% to allow improved mobility STG Duration 08/27/22 Residential Goal (LTG) Decrease pain by at least 75% to allow patient to improve her mobility and activity level LTG Duration 09/27/22 Assessment Summary Assessment Patient presents to PT with function-limiting pain in her lateral and posterior hip with signs and symptoms consistent with hamstring strain. Impairments include weakness, gait dysfunction and activity intolerance. Feel she would benefit from PT to address the above goals and help her return to her prior level of function. We discussed POC and she is in agreement. After evaluation today patient was instructed in HEP with handout issued and moist heat was applied to her right hamstring with good tolerance. Physical Therapy Plan Frequency and Duration Frequency of Treatment 2x/Week Duration of treatment (weeks) 8 Plan of Care Start Date 07/28/22 Plan of Care End Date 10/26/22 Therapeutic Interventions Therapeutic Interventions Aquatic Therapy,Gait Training, Home Exercise Program,Manual Therapy,Neuromuscular Re- education,Patient/Caregiver Education,Self-Care/Home Management,Soft Tissue Mobilization,Taping, Therapeutic Activities, Therapeutic Exercises Modalities Cold Pack/Ice Massage,Electric Stimulation,Hot Packs, Infrared Therapy,Iontophoresis ,Ultrasound Next Visit Focus/Plan Next Note Type Treatment Note Next Visit Plan Review HEP, gentle ther ex progression as tolerated. Consider manual therapy and modalities for pain management .
--- NOTE | 2022-07-28 17:25 | PT.OPPOC ---
Physical, Occupational & Speech Therapy At [facility] Current Diagnoses Enthesopathy, unspecified (07/28/22) Visit Care Team Role Provider Type Sally Benedict MD Attending Provider Physician Primary Care Provider Referring Provider Specialty: Family Practice Address: [address] [place] [address] [place], [address] Email: [email or web address] Plan Of Care PT-OP-T Assessment and Plan Start: 07/28/22 08:51 Freq: Status: Active Protocol: Document 07/28/22 17:25 [facility] (Rec: 07/28/22 17:40 [facility] [id number]) Physical Therapy Assessment Rehab Potential Rehabilitation Potential Good Evaluation Complexity Number of Personal Factors/Comorbidities 1-2 Number of Body Systems Impaired 3 Clinical Presentation at Evaluation Evolving Impairments Impairments Activity Tolerance,Gait,Pain, Strength Goals Three Impairment weakness in right hip and knee Short Term Goal (STG) patient to be instructed in HEP to address impairments and support therapy activities STG Duration 08/26/22 Nursing Home Goal (LTG) Patient will be independent and compliant with HEP and demonstrate LE strength improvement to 5/5 to allow her to return to all prior activities with ease LTG Duration 09/26/22 Two Impairment gait dysfunction/activity tolerance Impairment unable to ambulate on uneven surfaces without pain Short Term Goal (STG) Patient will be able to ambulate on stairs with alternating pattern with minimal to no pain STG Duration 08/26/22 Government Affairs Researcher Goal (LTG) Patient will be able to resume hiking on uneven ground with minimal to no pain LTG Duration 09/26/22 One Impairment pain right lateral and posterior hip limiting mobility Short Term Goal (STG) Decrease pain by at least 50% to allow improved mobility STG Duration 08/27/22 Nursing Home Goal (LTG) Decrease pain by at least 75% to allow patient to improve her mobility and activity level LTG Duration 09/27/22 Assessment Summary Assessment Patient presents to PT with function-limiting pain in her lateral and posterior hip with signs and symptoms consistent with hamstring strain. Impairments include weakness, gait dysfunction and activity intolerance. Feel she would benefit from PT to address the above goals and help her return to her prior level of function. We discussed POC and she is in agreement. After evaluation today patient was instructed in HEP with handout issued and moist heat was applied to her right hamstring with good tolerance. Physical Therapy Plan Frequency and Duration Frequency of Treatment 2x/Week Duration of treatment (weeks) 8 Plan of Care Start Date 07/28/22 Plan of Care End Date 10/26/22 Therapeutic Interventions Therapeutic Interventions Aquatic Therapy,Gait Training, Home Exercise Program,Manual Therapy,Neuromuscular Re- education,Patient/Caregiver Education,Self-Care/Home Management,Soft Tissue Mobilization,Taping, Therapeutic Activities, Therapeutic Exercises Modalities Cold Pack/Ice Massage,Electric Stimulation,Hot Packs, Infrared Therapy,Iontophoresis ,Ultrasound Next Visit Focus/Plan Next Note Type Treatment Note Next Visit Plan Review HEP, gentle ther ex progression as tolerated. Consider manual therapy and modalities for pain management . Plan of Care Dates Plan of Care Start Date 07/28/22 Plan of Care End Date 10/26/22 Electronically Signed by: Melly Pineda, PT 08/01/22 0943 If you are in agreement with this Plan of Care, please return a signed and dated copy. I have reviewed this Plan of Care and certify that the skilled therapy services above are required to meet the patient?s needs. Physician Signature Date Printed Name and Credentials Clinical Instructor Signature Printed Name and Credentials
--- NOTE | 2022-08-02 12:05 | PT.OTN ---
Current Diagnoses Enthesopathy, unspecified (08/02/22) Physical Therapy Treatment Note PT-OP-A Visit Information Start: 07/28/22 08:51 Freq: Status: Active Protocol: Document 08/02/22 11:07 [facility] (Rec: 08/02/22 12:04 [facility] [id number]) Out-Patient Physical Therapy Visit Information Visit Information Visit Type Treatment Note Visit Start Time 11:15 Visit Number 2 Evaluation Information Evaluation Date 07/28/22 PT-OP-B Current Condition Start: 07/28/22 08:51 Freq: Status: Active Protocol: Document 08/02/22 11:07 [facility] (Rec: 08/02/22 12:04 [facility] [id number]) Current Condition History of Current Condition Onset Date FEBRUARY 2022 Current Complaints right lateral and posterior hip pain History of Current Condition Reports february 2022 was doing a lot of hiking and felt onset posterior thigh pain right. Spent the rest of the summer in pain, tried ice and heat, some rest. Unable to alternate feet on stairs and leaned heavily to the right. Pain worse with sitting or walking uneven ground. Also reports prior fall onto lateral hip right and has had residual pain ever since. Reports she has had some improvement in her pain but still has pain especially with gait on stairs or uneven ground and has difficulty moving from sit to stand, feels very weak. Prior Treatments and Tests no imaging Future Testing and Treatments Planned to return to physician if PT not helpful Treatment Goals Patient/Caregiver Goals decrease her pain, improve her strength and tolerance for activity especially hiking and walking on uneven surfaces. Liked hot pack., hasn't tried heat at home. PT-OP-C Subjective Start: 07/28/22 08:51 Freq: Status: Active Protocol: Document 08/02/22 11:07 [facility] (Rec: 08/02/22 12:04 [facility] [id number]) OP-PT Subjective Patient Comments Patient Comments No new c/o, has some questions about the exercises, brought HO. Still working on bed positioning; likes pillows under knees laying on back, trying to figure out what best when on side. PT-OP-G Mobility & Gait Start: 07/28/22 08:51 Freq: Status: Active Protocol: Document 07/28/22 17:25 [facility] (Rec: 08/01/22 09:41 [facility] [id number]) OP Gait Assessment Gait Gait Assistance Required: Independent Assistive Devices Assistive Device None Gait Deviations General Gait Pattern Antalgic,Decreased Stride Length Stair Climbing Evaluation Technique/Endurance Stair Climbing Direction Ascend and Descend Stair Climbing Technique Step to Step PT-OP-H Neuro Start: 07/28/22 08:51 Freq: Status: Active Protocol: Document 07/28/22 17:25 [facility] (Rec: 08/01/22 09:41 [facility] [id number]) Sensation Evaluation Gross Sensation Gross Sensation WNL PT-OP-J Posture/Palpation/Skin Start: 07/28/22 08:51 Freq: Status: Active Protocol: Document 07/28/22 17:25 [facility] (Rec: 08/01/22 09:41 [facility] [id number]) Posture Evaluation Position Standing Head/C-Spine Posture Forward Head T-Spine Posture Increased Kyphosis L-Spine Posture Increased Lordosis Shoulder Posture (L) Rounded,(R) Rounded Scapula Posture (L) Protracted,(R) Protracted Arm Posture (L) Internally Rotated,(R) Internally Rotated Pelvis Posture Anteriorly Tilted Weight Distribution Weight Shifted Right Palpation Assessment Location HS Palpation Location right Palpation Findings Tenderness gr trochanter Palpation Location right Palpation Findings Tenderness PSIS Palpation Location non tender PT-OP-K Range of Motion Start: 07/28/22 08:51 Freq: Status: Active Protocol: Document 07/28/22 17:25 [facility] (Rec: 08/01/22 09:41 [facility] [id number]) Lumbar Spine Range of Motion Lumbar Spine Active Comments WFL Hip Goniometric Range of Motion Hip Right Hip ROM WFL No Flexion w/Knee Flexed 110 Straight Leg Raise 65 Extension 10 Abduction 25 Internal Rotation 20 External Rotation 55 Left Hip ROM WFL Yes Hip ROM Limitations Hip ROM Limitations Soft Tissue Tightness,Pain Knee Goniometric Range of Motion Knee jane Knee ROM WFL Yes PT-OP-M Strength Start: 07/28/22 08:51 Freq: Status: Active Protocol: Document 07/28/22 17:25 [facility] (Rec: 08/01/22 09:41 [facility] [id number]) Hip Strength Hip Manual Muscle Testing Right Flexion (L2) 4 Good Extension (S1) 4 Good Adduction 4+ Good+ External Rotation 4- Good- Internal Rotation 4 Good Left Flexion (L2) 4+ Good+ Extension (S1) 4+ Good+ Abduction 4+ Good+ Adduction 4+ Good+ External Rotation 4 Good Internal Rotation 4+ Good+ Knee Strength Knee Manual Muscle Testing Right Flexion (S2) 4 Good Extension (L3) 4 Good Left Flexion (S2) 4+ Good+ Extension (L3) 4+ Good+ PT-OP-Q Treatments Start: 07/28/22 08:51 Freq: Status: Active Protocol: Document 08/02/22 11:07 [facility] (Rec: 08/02/22 12:04 [facility] [id number]) Cardio Equipment Recumbent Stepper (Sci-Fit) Duration (Minutes) 8 Resistance 1 Seat Position 10 Therapeutic Exercises Supine Exercises ball squeeze Reps/Minutes 10x heelslide Reps/Minutes 10x PPT Reps/Minutes 10x glute set Reps/Minutes 10x HS stretch Reps/Minutes 2x30 SKTC Reps/Minutes 2x30 Sidelying Exercises reverse clamshell Reps/Minutes 10x Comments cues for technique clamshell Reps/Minutes 10x Comments cues for technique Self-Care/Home Management Treatment Education Patient Education Home Exercise Program,Pain Management PT-OP-R Modalities Start: 07/28/22 08:51 Freq: Status: Active Protocol: Document 08/02/22 11:07 [facility] (Rec: 08/02/22 12:04 [facility] [id number]) Hot Pack/Cold Pack Treatment Hot Pack Location right hamstring Patient Position Hooklying Treatment Duration (minutes) 15 Patient Tolerance Good PT-OP-T Assessment and Plan Start: 07/28/22 08:51 Freq: Status: Active Protocol: Document 08/02/22 11:07 [facility] (Rec: 08/02/22 12:04 [facility] [id number]) Physical Therapy Assessment Impairments Impairments Activity Tolerance,Gait,Pain, Strength Goals Three Impairment weakness in right hip and knee Short Term Goal (STG) patient to be instructed in HEP to address impairments and support therapy activities STG Duration 08/26/22 Jail Goal (LTG) Patient will be independent and compliant with HEP and demonstrate LE strength improvement to 5/5 to allow her to return to all prior activities with ease LTG Duration 09/26/22 Two Impairment gait dysfunction/activity tolerance Impairment unable to ambulate on uneven surfaces without pain Short Term Goal (STG) Patient will be able to ambulate on stairs with alternating pattern with minimal to no pain STG Duration 08/26/22 Jail Goal (LTG) Patient will be able to resume hiking on uneven ground with minimal to no pain LTG Duration 09/26/22 One Impairment pain right lateral and posterior hip limiting mobility Short Term Goal (STG) Decrease pain by at least 50% to allow improved mobility STG Duration 08/27/22 Neonatal Nurse Goal (LTG) Decrease pain by at least 75% to allow patient to improve her mobility and activity level LTG Duration 09/27/22 Assessment Summary Assessment Mod cues for correct performance of exercises including activation of core musculatrure. Good tolerance for Sci-Fit with patient denying inc pain. Reviewed HEP and added ball squeeze. Physical Therapy Plan Frequency and Duration Frequency of Treatment 2x/Week Duration of treatment (weeks) 8 Plan of Care Start Date 07/28/22 Plan of Care End Date 10/26/22 Therapeutic Interventions Therapeutic Interventions Aquatic Therapy,Gait Training, Home Exercise Program,Manual Therapy,Neuromuscular Re- education,Patient/Caregiver Education,Self-Care/Home Management,Soft Tissue Mobilization,Taping, Therapeutic Activities, Therapeutic Exercises Modalities Cold Pack/Ice Massage,Electric Stimulation,Hot Packs, Infrared Therapy,Iontophoresis ,Ultrasound Next Visit Focus/Plan Next Note Type Treatment Note Next Visit Plan Progression of ther ex as tolerated. Add sidelying hip abduction, seated hamstring curl with L1 TB.
--- NOTE | 2022-08-04 15:29 | PT.OTN ---
Current Diagnoses Enthesopathy, unspecified (08/04/22) Physical Therapy Treatment Note PT-OP-A Visit Information Start: 07/28/22 08:51 Freq: Status: Active Protocol: Document 08/04/22 14:31 SAK (Rec: 08/04/22 15:29 [facility] [id number]) Out-Patient Physical Therapy Visit Information Visit Information Visit Type Treatment Note Visit Start Time 14:30 Visit Stop Time 15:25 Total Visit Minutes 55 Visit Number 3 Evaluation Information Evaluation Date 07/28/22 PT-OP-B Current Condition Start: 07/28/22 08:51 Freq: Status: Active Protocol: Document 08/04/22 14:31 SAK (Rec: 08/04/22 15:29 [facility] [id number]) Current Condition History of Current Condition Onset Date FEBRUARY 2022 Current Complaints right lateral and posterior hip pain History of Current Condition Reports february 2022 was doing a lot of hiking and felt onset posterior thigh pain right. Spent the rest of the summer in pain, tried ice and heat, some rest. Unable to alternate feet on stairs and leaned heavily to the right. Pain worse with sitting or walking uneven ground. Also reports prior fall onto lateral hip right and has had residual pain ever since. Reports she has had some improvement in her pain but still has pain especially with gait on stairs or uneven ground and has difficulty moving from sit to stand, feels very weak. Prior Treatments and Tests no imaging Future Testing and Treatments Planned to return to physician if PT not helpful Treatment Goals Patient/Caregiver Goals decrease her pain, improve her strength and tolerance for activity especially hiking and walking on uneven surfaces. Liked hot pack., hasn't tried heat at home. PT-OP-C Subjective Start: 07/28/22 08:51 Freq: Status: Active Protocol: Document 08/04/22 14:31 SAK (Rec: 08/04/22 15:29 [facility] [id number]) OP-PT Subjective Patient Comments Patient Comments No new c/o, compliant to HEP. Improving pain, only time feels it is when she goes up the stairs. PT-OP-G Mobility & Gait Start: 07/28/22 08:51 Freq: Status: Active Protocol: Document 07/28/22 17:25 SAK (Rec: 08/01/22 09:41 [facility] [id number]) OP Gait Assessment Gait Gait Assistance Required: Independent Assistive Devices Assistive Device None Gait Deviations General Gait Pattern Antalgic,Decreased Stride Length Stair Climbing Evaluation Technique/Endurance Stair Climbing Direction Ascend and Descend Stair Climbing Technique Step to Step PT-OP-H Neuro Start: 07/28/22 08:51 Freq: Status: Active Protocol: Document 07/28/22 17:25 SAK (Rec: 08/01/22 09:41 [facility] [id number]) Sensation Evaluation Gross Sensation Gross Sensation WNL PT-OP-J Posture/Palpation/Skin Start: 07/28/22 08:51 Freq: Status: Active Protocol: Document 07/28/22 17:25 SAK (Rec: 08/01/22 09:41 [facility] [id number]) Posture Evaluation Position Standing Head/C-Spine Posture Forward Head T-Spine Posture Increased Kyphosis L-Spine Posture Increased Lordosis Shoulder Posture (L) Rounded,(R) Rounded Scapula Posture (L) Protracted,(R) Protracted Arm Posture (L) Internally Rotated,(R) Internally Rotated Pelvis Posture Anteriorly Tilted Weight Distribution Weight Shifted Right Palpation Assessment Location HS Palpation Location right Palpation Findings Tenderness gr trochanter Palpation Location right Palpation Findings Tenderness PSIS Palpation Location non tender PT-OP-K Range of Motion Start: 07/28/22 08:51 Freq: Status: Active Protocol: Document 07/28/22 17:25 [facility] (Rec: 08/01/22 09:41 [facility] [id number]) Lumbar Spine Range of Motion Lumbar Spine Active Comments WFL Hip Goniometric Range of Motion Hip Right Hip ROM WFL No Flexion w/Knee Flexed 110 Straight Leg Raise 65 Extension 10 Abduction 25 Internal Rotation 20 External Rotation 55 Left Hip ROM WFL Yes Hip ROM Limitations Hip ROM Limitations Soft Tissue Tightness,Pain Knee Goniometric Range of Motion Knee jane Knee ROM WFL Yes PT-OP-M Strength Start: 07/28/22 08:51 Freq: Status: Active Protocol: Document 07/28/22 17:25 [facility] (Rec: 08/01/22 09:41 [facility] [id number]) Hip Strength Hip Manual Muscle Testing Right Flexion (L2) 4 Good Extension (S1) 4 Good Adduction 4+ Good+ External Rotation 4- Good- Internal Rotation 4 Good Left Flexion (L2) 4+ Good+ Extension (S1) 4+ Good+ Abduction 4+ Good+ Adduction 4+ Good+ External Rotation 4 Good Internal Rotation 4+ Good+ Knee Strength Knee Manual Muscle Testing Right Flexion (S2) 4 Good Extension (L3) 4 Good Left Flexion (S2) 4+ Good+ Extension (L3) 4+ Good+ PT-OP-Q Treatments Start: 07/28/22 08:51 Freq: Status: Active Protocol: Document 08/04/22 14:31 [facility] (Rec: 08/04/22 15:29 [facility] [id number]) Cardio Equipment Recumbent Stepper (Sci-Fit) Duration (Minutes) 10 Resistance 1.5 Seat Position 10 Other cues to push through heels Therapeutic Exercises Supine Exercises bridge Supine Exercise Name segmental, pain-free ROM Reps/Minutes 10x Comments start with gluteal set ball squeeze Equipment Used green ball Reps/Minutes 10x5 Comments cues for core activation heelslide Comments HEP PPT Comments HEP glute set Comments HEP HS stretch Reps/Minutes 2x30 SKTC Reps/Minutes 2x30 Sidelying Exercises reverse clamshell Reps/Minutes 10x Comments cues for technique, activate core, don't roll back clamshell Reps/Minutes 10x Comments cues for technique, activate core, don't roll back Sitting Exercises sit to stand Equipment Used standard height chair Reps/Minutes 10x Comments cues for hip hinge, gluteal activation Self-Care/Home Management Treatment Education Patient Education Home Exercise Program,Pain Management Other Education updated HO issued PT-OP-R Modalities Start: 07/28/22 08:51 Freq: Status: Active Protocol: Document 08/04/22 14:31 [facility] (Rec: 08/04/22 15:29 [facility] [id number]) Hot Pack/Cold Pack Treatment Hot Pack Location right hamstring Patient Position Hooklying Treatment Duration (minutes) 15 Patient Tolerance Good PT-OP-T Assessment and Plan Start: 07/28/22 08:51 Freq: Status: Active Protocol: Document 08/04/22 14:31 [facility] (Rec: 08/04/22 15:29 [facility] [id number]) Physical Therapy Assessment Impairments Impairments Activity Tolerance,Gait,Pain, Strength Goals Three Impairment weakness in right hip and knee Short Term Goal (STG) patient to be instructed in HEP to address impairments and support therapy activities STG Duration 08/26/22 Snf Goal (LTG) Patient will be independent and compliant with HEP and demonstrate LE strength improvement to 5/5 to allow her to return to all prior activities with ease LTG Duration 09/26/22 Two Impairment gait dysfunction/activity tolerance Impairment unable to ambulate on uneven surfaces without pain Short Term Goal (STG) Patient will be able to ambulate on stairs with alternating pattern with minimal to no pain STG Duration 08/26/22 [employer]inator [employer] Goal (LTG) Patient will be able to resume hiking on uneven ground with minimal to no pain LTG Duration 09/26/22 One Impairment pain right lateral and posterior hip limiting mobility Short Term Goal (STG) Decrease pain by at least 50% to allow improved mobility STG Duration 08/27/22 [employer] Goal (LTG) Decrease pain by at least 75% to allow patient to improve her mobility and activity level LTG Duration 09/27/22 Assessment Summary Assessment Good tolerance for progression of ther ex. IMproved ability to do sit to stand with instruction in hip hinge. Physical Therapy Plan Frequency and Duration Frequency of Treatment 2x/Week Duration of treatment (weeks) 8 Plan of Care Start Date 07/28/22 Plan of Care End Date 10/26/22 Therapeutic Interventions Therapeutic Interventions Aquatic Therapy,Gait Training, Home Exercise Program,Manual Therapy,Neuromuscular Re- education,Patient/Caregiver Education,Self-Care/Home Management,Soft Tissue Mobilization,Taping, Therapeutic Activities, Therapeutic Exercises Modalities Cold Pack/Ice Massage,Electric Stimulation,Hot Packs, Infrared Therapy,Iontophoresis ,Ultrasound Next Visit Focus/Plan Next Note Type Treatment Note Next Visit Plan Progression of ther ex as tolerated. Consider eccentric hamstring ex, gait on 4 stairs, and manual therapy as indicated.
--- NOTE | 2022-08-09 13:00 | PT.OTN ---
Current Diagnoses Enthesopathy, unspecified (08/09/22) Physical Therapy Treatment Note PT-OP-A Visit Information Start: 07/28/22 08:51 Freq: Status: Active Protocol: Document 08/09/22 12:19 SP (Rec: 08/09/22 13:20 SP [id number]) Out-Patient Physical Therapy Visit Information Visit Information Visit Type Treatment Note Visit Start Time 12:19 Visit Stop Time 13:00 Total Visit Minutes 41 Visit Number 4 Number of TICKETER Visits 1 Evaluation Information Evaluation Date 07/28/22 PT-OP-B Current Condition Start: 07/28/22 08:51 Freq: Status: Active Protocol: Document 08/04/22 14:31 SAK (Rec: 08/04/22 15:29 SAK [id number]) Current Condition History of Current Condition Onset Date FEBRUARY 2022 Current Complaints right lateral and posterior hip pain History of Current Condition Reports february 2022 was doing a lot of hiking and felt onset posterior thigh pain right. Spent the rest of the summer in pain, tried ice and heat, some rest. Unable to alternate feet on stairs and leaned heavily to the right. Pain worse with sitting or walking uneven ground. Also reports prior fall onto lateral hip right and has had residual pain ever since. Reports she has had some improvement in her pain but still has pain especially with gait on stairs or uneven ground and has difficulty moving from sit to stand, feels very weak. Prior Treatments and Tests no imaging Future Testing and Treatments Planned to return to physician if PT not helpful Treatment Goals Patient/Caregiver Goals decrease her pain, improve her strength and tolerance for activity especially hiking and walking on uneven surfaces. Liked hot pack., hasn't tried heat at home. PT-OP-C Subjective Start: 07/28/22 08:51 Freq: Status: Active Protocol: Document 08/09/22 12:19 SP (Rec: 08/09/22 13:20 SP [id number]) OP-PT Subjective Patient Comments Patient Comments Pt states trying to have good body mechanics hip hinge and no UE but after couple reps tires and needs use some UE support. She stated forgot her strap at home to use in PT . PT-OP-G Mobility & Gait Start: 07/28/22 08:51 Freq: Status: Active Protocol: Document 07/28/22 17:25 SAK (Rec: 08/01/22 09:41 [facility] [id number]) OP Gait Assessment Gait Gait Assistance Required: Independent Assistive Devices Assistive Device None Gait Deviations General Gait Pattern Antalgic,Decreased Stride Length Stair Climbing Evaluation Technique/Endurance Stair Climbing Direction Ascend and Descend Stair Climbing Technique Step to Step PT-OP-H Neuro Start: 07/28/22 08:51 Freq: Status: Active Protocol: Document 07/28/22 17:25 [facility] (Rec: 08/01/22 09:41 [facility] [id number]) Sensation Evaluation Gross Sensation Gross Sensation WNL PT-OP-J Posture/Palpation/Skin Start: 07/28/22 08:51 Freq: Status: Active Protocol: Document 07/28/22 17:25 [facility] (Rec: 08/01/22 09:41 [facility] [id number]) Posture Evaluation Position Standing Head/C-Spine Posture Forward Head T-Spine Posture Increased Kyphosis L-Spine Posture Increased Lordosis Shoulder Posture (L) Rounded,(R) Rounded Scapula Posture (L) Protracted,(R) Protracted Arm Posture (L) Internally Rotated,(R) Internally Rotated Pelvis Posture Anteriorly Tilted Weight Distribution Weight Shifted Right Palpation Assessment Location HS Palpation Location right Palpation Findings Tenderness gr trochanter Palpation Location right Palpation Findings Tenderness PSIS Palpation Location non tender PT-OP-K Range of Motion Start: 07/28/22 08:51 Freq: Status: Active Protocol: Document 07/28/22 17:25 [facility] (Rec: 08/01/22 09:41 [facility] [id number]) Lumbar Spine Range of Motion Lumbar Spine Active Comments WFL Hip Goniometric Range of Motion Hip Right Hip ROM WFL No Flexion w/Knee Flexed 110 Straight Leg Raise 65 Extension 10 Abduction 25 Internal Rotation 20 External Rotation 55 Left Hip ROM WFL Yes Hip ROM Limitations Hip ROM Limitations Soft Tissue Tightness,Pain Knee Goniometric Range of Motion Knee jane Knee ROM WFL Yes PT-OP-M Strength Start: 07/28/22 08:51 Freq: Status: Active Protocol: Document 07/28/22 17:25 [facility] (Rec: 08/01/22 09:41 [facility] [id number]) Hip Strength Hip Manual Muscle Testing Right Flexion (L2) 4 Good Extension (S1) 4 Good Adduction 4+ Good+ External Rotation 4- Good- Internal Rotation 4 Good Left Flexion (L2) 4+ Good+ Extension (S1) 4+ Good+ Abduction 4+ Good+ Adduction 4+ Good+ External Rotation 4 Good Internal Rotation 4+ Good+ Knee Strength Knee Manual Muscle Testing Right Flexion (S2) 4 Good Extension (L3) 4 Good Left Flexion (S2) 4+ Good+ Extension (L3) 4+ Good+ PT-OP-Q Treatments Start: 07/28/22 08:51 Freq: Status: Active Protocol: Document 08/09/22 12:19 SP (Rec: 08/09/22 13:20 SP [id number]) Cardio Equipment Recumbent Stepper (Sci-Fit) Duration (Minutes) 10 Resistance 1.5 Seat Position 10 Other good push through heels, 57-60 RPM, 1.18 miles Therapeutic Exercises Supine Exercises bridge Supine Exercise Name segmental, pain-free ROM Resistance incorporate PPT, TA and glut fac Reps/Minutes 10x Comments tail bone lift, 1 vertebra at time, heel press glut fac ball squeeze Equipment Used green ball Reps/Minutes 10x5 Comments cued neutral pelvis and core activation HS stretch Supine Exercise Name w/ slow gentle AP Reps/Minutes 2x30 Comments good form, stretch response SKTC Supine Exercise Name reviewed self HEP Reps/Minutes 2x30 Comments good feedback stretch Sidelying Exercises reverse clamshell Reps/Minutes 10x Comments good form clamshell Reps/Minutes 10x Comments good form Sitting Exercises HS curls Sitting Exercise Name review added last tx Side right Resistance Tb #1 Equipment Used mesh chair Reps/Minutes 5 s hold x10 Comments cued slow eccentric return start position HS stretch Sitting Exercise Name review for seated position Side right Equipment Used mesh chair Reps/Minutes 30 hold Comments cued TA neutral LS and hip hinge forward sit to stand Sitting Exercise Name arms across chest Equipment Used standard height chair> blue foam Reps/Minutes 10x Comments cues for hip hinge, gluteal activation Standing Exercises mini squat Standing Exercise Name holds- added to HEP Equipment Used rail PRN Reps/Minutes 5 s x10 Comments cued knees behind and with toes Manual Therapy Treatment Soft Tissue Mobilization HS Body Location next manual and self rolling pin Neuro Re-Education Treatment Balance Activities hurdles Details add next tx uneven surface Details add next tx PT-OP-R Modalities Start: 07/28/22 08:51 Freq: Status: Active Protocol: Document 08/04/22 14:31 SAK (Rec: 08/04/22 15:29 SAK [id number]) Hot Pack/Cold Pack Treatment Hot Pack Location right hamstring Patient Position Hooklying Treatment Duration (minutes) 15 Patient Tolerance Good PT-OP-T Assessment and Plan Start: 07/28/22 08:51 Freq: Status: Active Protocol: Document 08/09/22 12:19 SP (Rec: 08/09/22 13:20 SP [id number]) Physical Therapy Assessment Goals Three Impairment weakness in right hip and knee Short Term Goal (STG) patient to be instructed in HEP to address impairments and support therapy activities STG Duration 08/26/22 Nursing Education Consultant Goal (LTG) Patient will be independent and compliant with HEP and demonstrate LE strength improvement to 5/5 to allow her to return to all prior activities with ease LTG Duration 09/26/22 Two Impairment gait dysfunction/activity tolerance Impairment unable to ambulate on uneven surfaces without pain Short Term Goal (STG) Patient will be able to ambulate on stairs with alternating pattern with minimal to no pain STG Duration 08/26/22 Nursing Education Consultant Goal (LTG) Patient will be able to resume hiking on uneven ground with minimal to no pain LTG Duration 09/26/22 One Impairment pain right lateral and posterior hip limiting mobility Short Term Goal (STG) Decrease pain by at least 50% to allow improved mobility STG Duration 08/27/22 Detention Goal (LTG) Decrease pain by at least 75% to allow patient to improve her mobility and activity level LTG Duration 09/27/22 Assessment Summary Assessment Pt responded well to HEP review in all positions and resistance still effective, added Mini squats with good feedback, painfree and muscular activation. Provided HO for carryover at home. Discontinued individual PPT, TA and incorporated with segmental bridge, good form. Physical Therapy Plan Frequency and Duration Frequency of Treatment 2x/Week Duration of treatment (weeks) 8 Plan of Care Start Date 07/28/22 Plan of Care End Date 10/26/22 Therapeutic Interventions Therapeutic Interventions Aquatic Therapy,Gait Training, Home Exercise Program,Manual Therapy,Neuromuscular Re- education,Patient/Caregiver Education,Self-Care/Home Management,Soft Tissue Mobilization,Taping, Therapeutic Activities, Therapeutic Exercises Modalities Cold Pack/Ice Massage,Electric Stimulation,Hot Packs, Infrared Therapy,Iontophoresis ,Ultrasound Next Visit Focus/Plan Next Note Type Treatment Note Next Visit Plan Recheck HEP:segmental bridge, mini squat hold, resisted HS. POC: Progression of ther ex as tolerated. Consider eccentric hamstring ex, gait on 4 stairs, and manual therapy as indicated.
--- NOTE | 2022-08-11 15:30 | PT.OTN ---
Current Diagnoses Enthesopathy, unspecified (08/11/22) Physical Therapy Treatment Note PT-OP-A Visit Information Start: 07/28/22 08:51 Freq: Status: Active Protocol: Document 08/11/22 11:16 SAK (Rec: 08/11/22 11:53 [facility] [id number]) Out-Patient Physical Therapy Visit Information Visit Information Visit Type Treatment Note Visit Start Time 11:16 Visit Stop Time 12:01 Total Visit Minutes 45 Visit Number 5 Number of PARCEL POST CLERK Visits 0 Evaluation Information Evaluation Date 07/28/22 PT-OP-B Current Condition Start: 07/28/22 08:51 Freq: Status: Active Protocol: Document 08/11/22 11:16 SAK (Rec: 08/11/22 11:53 [facility] [id number]) Current Condition History of Current Condition Onset Date FEBRUARY 2022 Current Complaints right lateral and posterior hip pain History of Current Condition Reports february 2022 was doing a lot of hiking and felt onset posterior thigh pain right. Spent the rest of the summer in pain, tried ice and heat, some rest. Unable to alternate feet on stairs and leaned heavily to the right. Pain worse with sitting or walking uneven ground. Also reports prior fall onto lateral hip right and has had residual pain ever since. Reports she has had some improvement in her pain but still has pain especially with gait on stairs or uneven ground and has difficulty moving from sit to stand, feels very weak. Prior Treatments and Tests no imaging Future Testing and Treatments Planned to return to physician if PT not helpful PT-OP-C Subjective Start: 07/28/22 08:51 Freq: Status: Active Protocol: Document 08/11/22 11:16 [facility] (Rec: 08/11/22 11:53 [facility] [id number]) OP-PT Subjective Patient Comments Patient Comments No new c/o, compliant to HEP, improving sit to stand ability PT-OP-G Mobility & Gait Start: 07/28/22 08:51 Freq: Status: Active Protocol: Document 07/28/22 17:25 SAK (Rec: 08/01/22 09:41 [facility] [id number]) OP Gait Assessment Gait Gait Assistance Required: Independent Assistive Devices Assistive Device None Gait Deviations General Gait Pattern Antalgic,Decreased Stride Length Stair Climbing Evaluation Technique/Endurance Stair Climbing Direction Ascend and Descend Stair Climbing Technique Step to Step PT-OP-H Neuro Start: 07/28/22 08:51 Freq: Status: Active Protocol: Document 07/28/22 17:25 [facility] (Rec: 08/01/22 09:41 [facility] [id number]) Sensation Evaluation Gross Sensation Gross Sensation WNL PT-OP-J Posture/Palpation/Skin Start: 07/28/22 08:51 Freq: Status: Active Protocol: Document 07/28/22 17:25 [facility] (Rec: 08/01/22 09:41 [facility] [id number]) Posture Evaluation Position Standing Head/C-Spine Posture Forward Head T-Spine Posture Increased Kyphosis L-Spine Posture Increased Lordosis Shoulder Posture (L) Rounded,(R) Rounded Scapula Posture (L) Protracted,(R) Protracted Arm Posture (L) Internally Rotated,(R) Internally Rotated Pelvis Posture Anteriorly Tilted Weight Distribution Weight Shifted Right Palpation Assessment Location HS Palpation Location right Palpation Findings Tenderness gr trochanter Palpation Location right Palpation Findings Tenderness PSIS Palpation Location non tender PT-OP-K Range of Motion Start: 07/28/22 08:51 Freq: Status: Active Protocol: Document 07/28/22 17:25 [facility] (Rec: 08/01/22 09:41 [facility] [id number]) Lumbar Spine Range of Motion Lumbar Spine Active Comments WFL Hip Goniometric Range of Motion Hip Right Hip ROM WFL No Flexion w/Knee Flexed 110 Straight Leg Raise 65 Extension 10 Abduction 25 Internal Rotation 20 External Rotation 55 Left Hip ROM WFL Yes Hip ROM Limitations Hip ROM Limitations Soft Tissue Tightness,Pain Knee Goniometric Range of Motion Knee jane Knee ROM WFL Yes PT-OP-M Strength Start: 07/28/22 08:51 Freq: Status: Active Protocol: Document 07/28/22 17:25 [facility] (Rec: 08/01/22 09:41 [facility] [id number]) Hip Strength Hip Manual Muscle Testing Right Flexion (L2) 4 Good Extension (S1) 4 Good Adduction 4+ Good+ External Rotation 4- Good- Internal Rotation 4 Good Left Flexion (L2) 4+ Good+ Extension (S1) 4+ Good+ Abduction 4+ Good+ Adduction 4+ Good+ External Rotation 4 Good Internal Rotation 4+ Good+ Knee Strength Knee Manual Muscle Testing Right Flexion (S2) 4 Good Extension (L3) 4 Good Left Flexion (S2) 4+ Good+ Extension (L3) 4+ Good+ PT-OP-Q Treatments Start: 07/28/22 08:51 Freq: Status: Active Protocol: Document 08/11/22 11:16 [facility] (Rec: 08/11/22 11:53 [facility] [id number]) Cardio Equipment Recumbent Stepper (Sci-Fit) Duration (Minutes) 10 Resistance 1.7 Seat Position 10 Other good push through heels, 57-60 RPM, 1.18 miles Gym Equipment Shuttle Balance red Details bal and wt shift f/b,side Reps/Duration 8 min Therapeutic Exercises Supine Exercises bridge Supine Exercise Name segmental, pain-free ROM Resistance incorporate PPT, TA and glut fac Reps/Minutes 10x Comments tail bone lift, 1 vertebra at time, heel press glut fac HS stretch Supine Exercise Name also ITB Equipment Used strap Reps/Minutes 2x30 Comments good form, stretch response Sidelying Exercises reverse clamshell Reps/Minutes 10x Comments good form clamshell Reps/Minutes 10x Comments good form Sitting Exercises HS curls Sitting Exercise Name review added last tx Side right Resistance Tb #1 Equipment Used mesh chair Reps/Minutes 5 s hold x10 Comments cued slow eccentric return start position HS stretch Sitting Exercise Name review for seated position Side right Equipment Used mesh chair Reps/Minutes 30 hold Comments cued TA neutral LS and hip hinge forward sit to stand Sitting Exercise Name arms across chest Equipment Used standard height chair> blue foam Reps/Minutes 10x Comments cues for hip hinge, gluteal activation Gait Training Gait Activity stairs Description 4, 6 Level of Assistance SBA, verbal cues Distance/Duration 2x each Treatment Focus controlled movement, gluteal activation Self-Care/Home Management Treatment Education Other Education self massage; rolling pin, massage sticks PT-OP-R Modalities Start: 07/28/22 08:51 Freq: Status: Active Protocol: Document 08/04/22 14:31 [facility] (Rec: 08/04/22 15:29 [facility] [id number]) Hot Pack/Cold Pack Treatment Hot Pack Location right hamstring Patient Position Hooklying Treatment Duration (minutes) 15 Patient Tolerance Good PT-OP-T Assessment and Plan Start: 07/28/22 08:51 Freq: Status: Active Protocol: Document 08/11/22 11:16 SAK (Rec: 08/11/22 11:53 [facility] [id number]) Physical Therapy Assessment Goals Three Impairment weakness in right hip and knee Short Term Goal (STG) patient to be instructed in HEP to address impairments and support therapy activities STG Duration 08/26/22 Nursing Home Goal (LTG) Patient will be independent and compliant with HEP and demonstrate LE strength improvement to 5/5 to allow her to return to all prior activities with ease LTG Duration 09/26/22 Two Impairment gait dysfunction/activity tolerance Impairment unable to ambulate on uneven surfaces without pain Short Term Goal (STG) Patient will be able to ambulate on stairs with alternating pattern with minimal to no pain STG Duration 08/26/22 Log Processor Operator Goal (LTG) Patient will be able to resume hiking on uneven ground with minimal to no pain LTG Duration 09/26/22 One Impairment pain right lateral and posterior hip limiting mobility Short Term Goal (STG) Decrease pain by at least 50% to allow improved mobility STG Duration 08/27/22 Nursing Home Goal (LTG) Decrease pain by at least 75% to allow patient to improve her mobility and activity level LTG Duration 09/27/22 Assessment Summary Assessment Initiated shuttle balance today on red chains, pt required mod to min UE support . Improving understanding and performance of HEP, pain less frequent and less intense Physical Therapy Plan Frequency and Duration Frequency of Treatment 2x/Week Duration of treatment (weeks) 8 Plan of Care Start Date 07/28/22 Plan of Care End Date 10/26/22 Therapeutic Interventions Therapeutic Interventions Aquatic Therapy,Gait Training, Home Exercise Program,Manual Therapy,Neuromuscular Re- education,Patient/Caregiver Education,Self-Care/Home Management,Soft Tissue Mobilization,Taping, Therapeutic Activities, Therapeutic Exercises Modalities Cold Pack/Ice Massage,Electric Stimulation,Hot Packs, Infrared Therapy,Iontophoresis ,Ultrasound Next Visit Focus/Plan Next Note Type Treatment Note Next Visit Plan Recheck HEP:segmental bridge, mini squat hold, resisted HS. POC: Progression of ther ex as tolerated. Consider eccentric hamstring ex, gait on 4 stairs, and manual therapy as indicated.
--- NOTE | 2022-08-16 11:24 | PT.OTN ---
Current Diagnoses Enthesopathy, unspecified (08/16/22) Physical Therapy Treatment Note PT-OP-A Visit Information Start: 07/28/22 08:51 Freq: Status: Active Protocol: Document 08/16/22 10:34 SP (Rec: 08/16/22 11:31 SP [id number]) Out-Patient Physical Therapy Visit Information Visit Information Visit Type Treatment Note Visit Start Time 10:34 Visit Stop Time 11:24 Total Visit Minutes 50 Visit Number 6 Number of PLASTIC TUBING INSULATION SUPERVISOR Visits 1 Evaluation Information Evaluation Date 07/28/22 PT-OP-B Current Condition Start: 07/28/22 08:51 Freq: Status: Active Protocol: Document 08/11/22 11:16 SAK (Rec: 08/11/22 11:53 [facility] [id number]) Current Condition History of Current Condition Onset Date FEBRUARY 2022 Current Complaints right lateral and posterior hip pain History of Current Condition Reports february 2022 was doing a lot of hiking and felt onset posterior thigh pain right. Spent the rest of the summer in pain, tried ice and heat, some rest. Unable to alternate feet on stairs and leaned heavily to the right. Pain worse with sitting or walking uneven ground. Also reports prior fall onto lateral hip right and has had residual pain ever since. Reports she has had some improvement in her pain but still has pain especially with gait on stairs or uneven ground and has difficulty moving from sit to stand, feels very weak. Prior Treatments and Tests no imaging Future Testing and Treatments Planned to return to physician if PT not helpful PT-OP-C Subjective Start: 07/28/22 08:51 Freq: Status: Active Protocol: Document 08/16/22 10:34 SP (Rec: 08/16/22 11:31 SP [id number]) OP-PT Subjective Patient Comments Patient Comments Pt reports last tx having trouble for glut fac coming to full stand onstep. Wants to continue this effort to improve stability ascending stairs. PT-OP-G Mobility & Gait Start: 07/28/22 08:51 Freq: Status: Active Protocol: Document 07/28/22 17:25 SAK (Rec: 08/01/22 09:41 [facility] [id number]) OP Gait Assessment Gait Gait Assistance Required: Independent Assistive Devices Assistive Device None Gait Deviations General Gait Pattern Antalgic,Decreased Stride Length Stair Climbing Evaluation Technique/Endurance Stair Climbing Direction Ascend and Descend Stair Climbing Technique Step to Step PT-OP-H Neuro Start: 07/28/22 08:51 Freq: Status: Active Protocol: Document 07/28/22 17:25 [facility] (Rec: 08/01/22 09:41 [facility] [id number]) Sensation Evaluation Gross Sensation Gross Sensation WNL PT-OP-J Posture/Palpation/Skin Start: 07/28/22 08:51 Freq: Status: Active Protocol: Document 07/28/22 17:25 [facility] (Rec: 08/01/22 09:41 [facility] [id number]) Posture Evaluation Position Standing Head/C-Spine Posture Forward Head T-Spine Posture Increased Kyphosis L-Spine Posture Increased Lordosis Shoulder Posture (L) Rounded,(R) Rounded Scapula Posture (L) Protracted,(R) Protracted Arm Posture (L) Internally Rotated,(R) Internally Rotated Pelvis Posture Anteriorly Tilted Weight Distribution Weight Shifted Right Palpation Assessment Location HS Palpation Location right Palpation Findings Tenderness gr trochanter Palpation Location right Palpation Findings Tenderness PSIS Palpation Location non tender PT-OP-K Range of Motion Start: 07/28/22 08:51 Freq: Status: Active Protocol: Document 07/28/22 17:25 [facility] (Rec: 08/01/22 09:41 [facility] [id number]) Lumbar Spine Range of Motion Lumbar Spine Active Comments WFL Hip Goniometric Range of Motion Hip Right Hip ROM WFL No Flexion w/Knee Flexed 110 Straight Leg Raise 65 Extension 10 Abduction 25 Internal Rotation 20 External Rotation 55 Left Hip ROM WFL Yes Hip ROM Limitations Hip ROM Limitations Soft Tissue Tightness,Pain Knee Goniometric Range of Motion Knee jane Knee ROM WFL Yes PT-OP-M Strength Start: 07/28/22 08:51 Freq: Status: Active Protocol: Document 07/28/22 17:25 [facility] (Rec: 08/01/22 09:41 [facility] [id number]) Hip Strength Hip Manual Muscle Testing Right Flexion (L2) 4 Good Extension (S1) 4 Good Adduction 4+ Good+ External Rotation 4- Good- Internal Rotation 4 Good Left Flexion (L2) 4+ Good+ Extension (S1) 4+ Good+ Abduction 4+ Good+ Adduction 4+ Good+ External Rotation 4 Good Internal Rotation 4+ Good+ Knee Strength Knee Manual Muscle Testing Right Flexion (S2) 4 Good Extension (L3) 4 Good Left Flexion (S2) 4+ Good+ Extension (L3) 4+ Good+ PT-OP-Q Treatments Start: 07/28/22 08:51 Freq: Status: Active Protocol: Document 08/16/22 10:34 SP (Rec: 08/16/22 11:31 SP [id number]) Cardio Equipment Recumbent Stepper (Sci-Fit) Duration (Minutes) 10 Resistance 2 Seat Position 10 Other good push through heels, 57-60 RPM, 1.67 miles Therapeutic Exercises Sitting Exercises piriformis stretch Sitting Exercise Name added to HEP Side right Reps/Minutes 30 x2 Comments good feedback stretch HS curls Sitting Exercise Name review added last tx Side right Resistance Tb #1>#2 Equipment Used mesh chair Reps/Minutes 5 s hold x12 Comments cued slow eccentric return start position HS stretch Sitting Exercise Name review for seated position Side right Equipment Used mesh chair Reps/Minutes 30 hold Comments cued TA neutral LS and hip hinge forward sit to stand Sitting Exercise Name arms across chest Equipment Used 17.5>16.5> 12 box (assist in/out camp chair) Reps/Minutes 10x Comments improved hip hinge to come to stand without UE support Standing Exercises HS curl Standing Exercise Name added to HEP Side bilateral Resistance TB #1 loop at ankles/under foot Reps/Minutes x10 each LE Comments good feedback tolerant range Self-Care/Home Management Treatment Education Patient Education Home Exercise Program Other Education reviewed use rolling pin quad, HS, calf; ball wall glut Added piriformis stretch and resisted hamstring curl standing. PT-OP-R Modalities Start: 07/28/22 08:51 Freq: Status: Active Protocol: Document 08/04/22 14:31 [facility] (Rec: 08/04/22 15:29 [facility] [id number]) Hot Pack/Cold Pack Treatment Hot Pack Location right hamstring Patient Position Hooklying Treatment Duration (minutes) 15 Patient Tolerance Good PT-OP-T Assessment and Plan Start: 07/28/22 08:51 Freq: Status: Active Protocol: Document 08/16/22 10:34 SP (Rec: 08/16/22 11:31 SP [id number]) Physical Therapy Assessment Goals Three Impairment weakness in right hip and knee Short Term Goal (STG) patient to be instructed in HEP to address impairments and support therapy activities 08/16/22: HEP seated resisted HS curl, HS stretch, side: clam/reverse, abd, clamshell, supine: isometric adduction, bridge, STS 16-17.5 folding chair x10. STG Duration 08/26/22 progressing 08/16/22 Correction Goal (LTG) Patient will be independent and compliant with HEP and demonstrate LE strength improvement to 5/5 to allow her to return to all prior activities with ease LTG Duration 09/26/22 Two Impairment gait dysfunction/activity tolerance Impairment unable to ambulate on uneven surfaces without pain Short Term Goal (STG) Patient will be able to ambulate on stairs with alternating pattern with minimal to no pain STG Duration 08/26/22 Can Closing Machine Operator Goal (LTG) Patient will be able to resume hiking on uneven ground with minimal to no pain LTG Duration 09/26/22 One Impairment pain right lateral and posterior hip limiting mobility Short Term Goal (STG) Decrease pain by at least 50% to allow improved mobility STG Duration 08/27/22 Correction Goal (LTG) Decrease pain by at least 75% to allow patient to improve her mobility and activity level LTG Duration 09/27/22 Assessment Summary Assessment Pt responded well to step ups light contact and STS glut facilitation to as low as 12 block height to assist from camping chair this coming week . She responded well to added resisted standing HS curl and pirformis stretch and self manual review but end tx. Physical Therapy Plan Frequency and Duration Frequency of Treatment 2x/Week Duration of treatment (weeks) 8 Plan of Care Start Date 07/28/22 Plan of Care End Date 10/26/22 Therapeutic Interventions Therapeutic Interventions Aquatic Therapy,Gait Training, Home Exercise Program,Manual Therapy,Neuromuscular Re- education,Patient/Caregiver Education,Self-Care/Home Management,Soft Tissue Mobilization,Taping, Therapeutic Activities, Therapeutic Exercises Modalities Cold Pack/Ice Massage,Electric Stimulation,Hot Packs, Infrared Therapy,Iontophoresis ,Ultrasound Next Visit Focus/Plan Next Note Type Treatment Note Next Visit Plan Recheck HEP:segmental bridge, mini squat hold, resisted HS. POC: Progression of ther ex as tolerated. Consider eccentric hamstring ex, gait on 4 stairs, and manual therapy as indicated.
--- NOTE | 2022-08-23 12:26 | PT.OTN ---
Current Diagnoses Enthesopathy, unspecified (08/23/22) Physical Therapy Treatment Note PT-OP-A Visit Information Start: 07/28/22 08:51 Freq: Status: Active Protocol: Document 08/23/22 11:14 [facility] (Rec: 08/23/22 12:26 [facility] [id number]) Out-Patient Physical Therapy Visit Information Visit Information Visit Type Treatment Note Visit Start Time 11:20 Visit Stop Time 12:00 Total Visit Minutes 40 Visit Number 7 Number of CUPOLA HOIST OPERATOR Visits 0 Evaluation Information Evaluation Date 07/28/22 PT-OP-B Current Condition Start: 07/28/22 08:51 Freq: Status: Active Protocol: Document 08/11/22 11:16 SAK (Rec: 08/11/22 11:53 [facility] [id number]) Current Condition History of Current Condition Onset Date FEBRUARY 2022 Current Complaints right lateral and posterior hip pain History of Current Condition Reports february 2022 was doing a lot of hiking and felt onset posterior thigh pain right. Spent the rest of the summer in pain, tried ice and heat, some rest. Unable to alternate feet on stairs and leaned heavily to the right. Pain worse with sitting or walking uneven ground. Also reports prior fall onto lateral hip right and has had residual pain ever since. Reports she has had some improvement in her pain but still has pain especially with gait on stairs or uneven ground and has difficulty moving from sit to stand, feels very weak. Prior Treatments and Tests no imaging Future Testing and Treatments Planned to return to physician if PT not helpful PT-OP-C Subjective Start: 07/28/22 08:51 Freq: Status: Active Protocol: Document 08/23/22 11:14 [facility] (Rec: 08/23/22 12:26 [facility] [id number]) OP-PT Subjective Patient Comments Patient Comments States she has questions about the squat exercise, doesn't know where here head needs to be and states she has had pain in her low back with that exercise, needs guidance. PT-OP-G Mobility & Gait Start: 07/28/22 08:51 Freq: Status: Active Protocol: Document 07/28/22 17:25 SAK (Rec: 08/01/22 09:41 [facility] [id number]) OP Gait Assessment Gait Gait Assistance Required: Independent Assistive Devices Assistive Device None Gait Deviations General Gait Pattern Antalgic,Decreased Stride Length Stair Climbing Evaluation Technique/Endurance Stair Climbing Direction Ascend and Descend Stair Climbing Technique Step to Step PT-OP-H Neuro Start: 07/28/22 08:51 Freq: Status: Active Protocol: Document 07/28/22 17:25 [facility] (Rec: 08/01/22 09:41 [facility] [id number]) Sensation Evaluation Gross Sensation Gross Sensation WNL PT-OP-J Posture/Palpation/Skin Start: 07/28/22 08:51 Freq: Status: Active Protocol: Document 07/28/22 17:25 [facility] (Rec: 08/01/22 09:41 [facility] [id number]) Posture Evaluation Position Standing Head/C-Spine Posture Forward Head T-Spine Posture Increased Kyphosis L-Spine Posture Increased Lordosis Shoulder Posture (L) Rounded,(R) Rounded Scapula Posture (L) Protracted,(R) Protracted Arm Posture (L) Internally Rotated,(R) Internally Rotated Pelvis Posture Anteriorly Tilted Weight Distribution Weight Shifted Right Palpation Assessment Location HS Palpation Location right Palpation Findings Tenderness gr trochanter Palpation Location right Palpation Findings Tenderness PSIS Palpation Location non tender PT-OP-K Range of Motion Start: 07/28/22 08:51 Freq: Status: Active Protocol: Document 07/28/22 17:25 [facility] (Rec: 08/01/22 09:41 [facility] [id number]) Lumbar Spine Range of Motion Lumbar Spine Active Comments WFL Hip Goniometric Range of Motion Hip Right Hip ROM WFL No Flexion w/Knee Flexed 110 Straight Leg Raise 65 Extension 10 Abduction 25 Internal Rotation 20 External Rotation 55 Left Hip ROM WFL Yes Hip ROM Limitations Hip ROM Limitations Soft Tissue Tightness,Pain Knee Goniometric Range of Motion Knee jane Knee ROM WFL Yes PT-OP-M Strength Start: 07/28/22 08:51 Freq: Status: Active Protocol: Document 07/28/22 17:25 [facility] (Rec: 08/01/22 09:41 [facility] [id number]) Hip Strength Hip Manual Muscle Testing Right Flexion (L2) 4 Good Extension (S1) 4 Good Adduction 4+ Good+ External Rotation 4- Good- Internal Rotation 4 Good Left Flexion (L2) 4+ Good+ Extension (S1) 4+ Good+ Abduction 4+ Good+ Adduction 4+ Good+ External Rotation 4 Good Internal Rotation 4+ Good+ Knee Strength Knee Manual Muscle Testing Right Flexion (S2) 4 Good Extension (L3) 4 Good Left Flexion (S2) 4+ Good+ Extension (L3) 4+ Good+ PT-OP-Q Treatments Start: 07/28/22 08:51 Freq: Status: Active Protocol: Document 08/23/22 11:14 [facility] (Rec: 08/23/22 12:26 [facility] [id number]) Cardio Equipment Recumbent Stepper (Sci-Fit) Duration (Minutes) 10 Resistance 2 Seat Position 10 Other good push through heels, 57-60 RPM, 1.36 miles Gym Equipment Shuttle Balance red Details bal and wt shift f/b,side Reps/Duration 8 min Therapeutic Exercises Supine Exercises single leg bridge Supine Exercise Name tightening only, no lift yet Reps/Minutes 10x bridge Supine Exercise Name segmental, pain-free ROM Resistance incorporate PPT, TA and glut fac Reps/Minutes 10x Comments tail bone lift, 1 vertebra at time, heel press glut fac HS stretch Supine Exercise Name also ITB Equipment Used strap Reps/Minutes 2x30 Comments good form, stretch response SKTC Supine Exercise Name reviewed self HEP Reps/Minutes 2x30 Comments good feedback stretch Sitting Exercises piriformis stretch Sitting Exercise Name added to HEP Side right Reps/Minutes 30 x2 Comments good feedback stretch sit to stand Sitting Exercise Name arms across chest Equipment Used 17.5>16.5> 12 box (assist in/out camp chair) Reps/Minutes 10x Comments improved hip hinge to come to stand without UE support, using yardstick Standing Exercises flat back stretch Equipment Used counter Reps/Minutes 2x30 Comments mirror for visual feedback Other Exercises child's pose Reps/Minutes 2x30 Comments cues for deep breathing cat/cow Reps/Minutes 10x Comments cues for segmental movement Gait Training Gait Activity stairs Description 4, 6 Level of Assistance SBA, verbal cues Distance/Duration 2x each Treatment Focus controlled movement, gluteal activation Self-Care/Home Management Treatment Education Other Education HEP review of form on squat, progression of supine DLS to single leg lower PT-OP-R Modalities Start: 07/28/22 08:51 Freq: Status: Active Protocol: Document 08/04/22 14:31 [facility] (Rec: 08/04/22 15:29 [facility] [id number]) Hot Pack/Cold Pack Treatment Hot Pack Location right hamstring Patient Position Hooklying Treatment Duration (minutes) 15 Patient Tolerance Good PT-OP-T Assessment and Plan Start: 07/28/22 08:51 Freq: Status: Active Protocol: Document 08/23/22 11:14 [facility]I (Rec: 08/23/22 12:26 [facility] [id number]) Physical Therapy Assessment Goals Three Impairment weakness in right hip and knee Short Term Goal (STG) patient to be instructed in HEP to address impairments and support therapy activities 08/16/22: HEP seated resisted HS curl, HS stretch, side: clam/reverse, abd, clamshell, supine: isometric adduction, bridge, STS 16-17.5 folding chair x10. STG Duration 08/26/22 progressing 08/16/22 Shelter Goal (LTG) Patient will be independent and compliant with HEP and demonstrate LE strength improvement to 5/5 to allow her to return to all prior activities with ease LTG Duration 09/26/22 Two Impairment gait dysfunction/activity tolerance Impairment unable to ambulate on uneven surfaces without pain Short Term Goal (STG) Patient will be able to ambulate on stairs with alternating pattern with minimal to no pain STG Duration 08/26/22 Shelter Goal (LTG) Patient will be able to resume hiking on uneven ground with minimal to no pain LTG Duration 09/26/22 One Impairment pain right lateral and posterior hip limiting mobility Short Term Goal (STG) Decrease pain by at least 50% to allow improved mobility STG Duration 08/27/22 Shelter Goal (LTG) Decrease pain by at least 75% to allow patient to improve her mobility and activity level LTG Duration 09/27/22 Assessment Summary Assessment Progression of supine DLS, addition of ex she can work into her day ie hiking or sitting. Added cat/cow and child's pose for spinal mobility and flexibility. Physical Therapy Plan Frequency and Duration Frequency of Treatment 2x/Week Duration of treatment (weeks) 8 Plan of Care Start Date 07/28/22 Plan of Care End Date 10/26/22 Therapeutic Interventions Therapeutic Interventions Aquatic Therapy,Gait Training, Home Exercise Program,Manual Therapy,Neuromuscular Re- education,Patient/Caregiver Education,Self-Care/Home Management,Soft Tissue Mobilization,Taping, Therapeutic Activities, Therapeutic Exercises Modalities Cold Pack/Ice Massage,Electric Stimulation,Hot Packs, Infrared Therapy,Iontophoresis ,Ultrasound Next Visit Focus/Plan Next Note Type Treatment Note Next Visit Plan POC: Progression of ther ex as tolerated. Consider eccentric hamstring ex, gait on 4 stairs, and manual therapy as indicated.
--- NOTE | 2022-08-25 12:55 | PT.OTN ---
Current Diagnoses Enthesopathy, unspecified (08/25/22) Physical Therapy Treatment Note PT-OP-A Visit Information Start: 07/28/22 08:51 Freq: Status: Active Protocol: Document 08/25/22 12:11 TS (Rec: 08/25/22 13:01 TS [id number]) Out-Patient Physical Therapy Visit Information Visit Information Visit Type Treatment Note Visit Note SPTA Joey lead treatment, supervised and directed by KADEN Maciel. Visit Start Time 12:15 Visit Stop Time 12:55 Total Visit Minutes 40 Visit Number 8 Number of MANAGER BUSINESS MANAGEMENT Visits 1 PT-OP-B Current Condition Start: 07/28/22 08:51 Freq: Status: Active Protocol: Document 08/11/22 11:16 SAK (Rec: 08/11/22 11:53 SAK [id number]) Current Condition History of Current Condition Onset Date FEBRUARY 2022 Current Complaints right lateral and posterior hip pain History of Current Condition Reports february 2022 was doing a lot of hiking and felt onset posterior thigh pain right. Spent the rest of the summer in pain, tried ice and heat, some rest. Unable to alternate feet on stairs and leaned heavily to the right. Pain worse with sitting or walking uneven ground. Also reports prior fall onto lateral hip right and has had residual pain ever since. Reports she has had some improvement in her pain but still has pain especially with gait on stairs or uneven ground and has difficulty moving from sit to stand, feels very weak. Prior Treatments and Tests no imaging Future Testing and Treatments Planned to return to physician if PT not helpful PT-OP-C Subjective Start: 07/28/22 08:51 Freq: Status: Active Protocol: Document 08/25/22 12:11 TS (Rec: 08/25/22 13:01 TS [id number]) OP-PT Subjective Patient Comments Patient Comments Pt reports she is still not sure that she is diong her sit to stands correctly. She states pt is feeling better. Has given up biking and kayaking, but is still wanting to use her boat and walk her dog. Says her stretches are really helping. PT-OP-G Mobility & Gait Start: 07/28/22 08:51 Freq: Status: Active Protocol: Document 07/28/22 17:25 [facility] (Rec: 08/01/22 09:41 [facility]AK [id number]) OP Gait Assessment Gait Gait Assistance Required: Independent Assistive Devices Assistive Device None Gait Deviations General Gait Pattern Antalgic,Decreased Stride Length Stair Climbing Evaluation Technique/Endurance Stair Climbing Direction Ascend and Descend Stair Climbing Technique Step to Step PT-OP-H Neuro Start: 07/28/22 08:51 Freq: Status: Active Protocol: Document 07/28/22 17:25 [facility] (Rec: 08/01/22 09:41 [facility] [id number]) Sensation Evaluation Gross Sensation Gross Sensation WNL PT-OP-J Posture/Palpation/Skin Start: 07/28/22 08:51 Freq: Status: Active Protocol: Document 07/28/22 17:25 [facility] (Rec: 08/01/22 09:41 [facility] [id number]) Posture Evaluation Position Standing Head/C-Spine Posture Forward Head T-Spine Posture Increased Kyphosis L-Spine Posture Increased Lordosis Shoulder Posture (L) Rounded,(R) Rounded Scapula Posture (L) Protracted,(R) Protracted Arm Posture (L) Internally Rotated,(R) Internally Rotated Pelvis Posture Anteriorly Tilted Weight Distribution Weight Shifted Right Palpation Assessment Location HS Palpation Location right Palpation Findings Tenderness gr trochanter Palpation Location right Palpation Findings Tenderness PSIS Palpation Location non tender PT-OP-K Range of Motion Start: 07/28/22 08:51 Freq: Status: Active Protocol: Document 07/28/22 17:25 [facility] (Rec: 08/01/22 09:41 [facility] [id number]) Lumbar Spine Range of Motion Lumbar Spine Active Comments WFL Hip Goniometric Range of Motion Hip Right Hip ROM WFL No Flexion w/Knee Flexed 110 Straight Leg Raise 65 Extension 10 Abduction 25 Internal Rotation 20 External Rotation 55 Left Hip ROM WFL Yes Hip ROM Limitations Hip ROM Limitations Soft Tissue Tightness,Pain Knee Goniometric Range of Motion Knee jane Knee ROM WFL Yes PT-OP-M Strength Start: 07/28/22 08:51 Freq: Status: Active Protocol: Document 07/28/22 17:25 [facility] (Rec: 08/01/22 09:41 [facility] [id number]) Hip Strength Hip Manual Muscle Testing Right Flexion (L2) 4 Good Extension (S1) 4 Good Adduction 4+ Good+ External Rotation 4- Good- Internal Rotation 4 Good Left Flexion (L2) 4+ Good+ Extension (S1) 4+ Good+ Abduction 4+ Good+ Adduction 4+ Good+ External Rotation 4 Good Internal Rotation 4+ Good+ Knee Strength Knee Manual Muscle Testing Right Flexion (S2) 4 Good Extension (L3) 4 Good Left Flexion (S2) 4+ Good+ Extension (L3) 4+ Good+ PT-OP-Q Treatments Start: 07/28/22 08:51 Freq: Status: Active Protocol: Document 08/25/22 12:11 TS (Rec: 08/25/22 13:01 TS [id number]) Cardio Equipment Recumbent Stepper (Sci-Fit) Duration (Minutes) 10 Resistance 2 Seat Position 10 Other good push through heels, 57-60 RPM, 1.36 miles Gym Equipment Shuttle Balance red Details WBOS,NBOS,EC,HTs, staggered Reps/Duration 12' Comments Improved balance with cues for glute, core act, self-cueing for pretending she's on a swing. Therapeutic Exercises Supine Exercises single leg bridge Supine Exercise Name Segmental hipe then leg lift Side bilateral Reps/Minutes 10x Comments Cues for sequencing, minimal lift bridge Reps/Minutes 10x Comments Cues TA activation, greater lift HS stretch Supine Exercise Name also ITB Equipment Used strap Reps/Minutes 2x30 Comments good form, stretch response Sitting Exercises sit to stand Equipment Used 18 mat table Reps/Minutes x20 Comments Good form and carryover fro previous session PT-OP-R Modalities Start: 07/28/22 08:51 Freq: Status: Active Protocol: Document 08/04/22 14:31 [facility] (Rec: 08/04/22 15:29 [facility] [id number]) Hot Pack/Cold Pack Treatment Hot Pack Location right hamstring Patient Position Hooklying Treatment Duration (minutes) 15 Patient Tolerance Good PT-OP-T Assessment and Plan Start: 07/28/22 08:51 Freq: Status: Active Protocol: Document 08/25/22 12:11 TS (Rec: 08/25/22 13:01 TS [id number]) Physical Therapy Assessment Goals Three Impairment weakness in right hip and knee Short Term Goal (STG) patient to be instructed in HEP to address impairments and support therapy activities 08/16/22: HEP seated resisted HS curl, HS stretch, side: clam/reverse, abd, clamshell, supine: isometric adduction, bridge, STS 16-17.5 folding chair x10. STG Duration 08/26/22 progressing 08/16/22 Logistics Supply Officer Goal (LTG) Patient will be independent and compliant with HEP and demonstrate LE strength improvement to 5/5 to allow her to return to all prior activities with ease LTG Duration 09/26/22 Two Impairment gait dysfunction/activity tolerance Impairment unable to ambulate on uneven surfaces without pain Short Term Goal (STG) Patient will be able to ambulate on stairs with alternating pattern with minimal to no pain STG Duration 08/26/22 Logistics Supply Officer Goal (LTG) Patient will be able to resume hiking on uneven ground with minimal to no pain LTG Duration 09/26/22 One Impairment pain right lateral and posterior hip limiting mobility Short Term Goal (STG) Decrease pain by at least 50% to allow improved mobility STG Duration 08/27/22 Usp Goal (LTG) Decrease pain by at least 75% to allow patient to improve her mobility and activity level LTG Duration 09/27/22 Assessment Summary Assessment Pt progressed shuttle balance with HTs, EC, staggered stance , NBOS, requires cues for glute and core act. Progressed single leg bridge with increased hip lift. Demonstrates good carryover of HEP. Will benefit from continued intervention to improve balance with boating and uneven surfaces. Physical Therapy Plan Frequency and Duration Frequency of Treatment 2x/Week Duration of treatment (weeks) 8 Plan of Care Start Date 07/28/22 Plan of Care End Date 10/26/22 Therapeutic Interventions Therapeutic Interventions Aquatic Therapy,Gait Training, Home Exercise Program,Manual Therapy,Neuromuscular Re- education,Patient/Caregiver Education,Self-Care/Home Management,Soft Tissue Mobilization,Taping, Therapeutic Activities, Therapeutic Exercises Modalities Cold Pack/Ice Massage,Electric Stimulation,Hot Packs, Infrared Therapy,Iontophoresis ,Ultrasound Next Visit Focus/Plan Next Note Type Treatment Note Next Visit Plan Continue to progress balance act, tandem walk, tandem stance, EC, HTs gait, shuttle balance. POC: Progression of ther ex as tolerated. Consider eccentric hamstring ex, gait on 4 stairs, and manual therapy as indicated.
--- NOTE | 2022-08-30 14:31 | PT.OTN ---
Current Diagnoses Enthesopathy, unspecified (08/30/22) Physical Therapy Treatment Note PT-OP-A Visit Information Start: 07/28/22 08:51 Freq: Status: Active Protocol: Document 08/30/22 13:33 [facility] (Rec: 08/30/22 14:31 [facility] [id number]) Out-Patient Physical Therapy Visit Information Visit Information Visit Type Treatment Note Visit Start Time 13:45 Visit Stop Time 14:25 Total Visit Minutes 40 Visit Number 9 Number of PROJECT GEOPHYSICIST Visits 1 PT-OP-B Current Condition Start: 07/28/22 08:51 Freq: Status: Active Protocol: Document 08/11/22 11:16 [facility] (Rec: 08/11/22 11:53 [facility] [id number]) Current Condition History of Current Condition Onset Date FEBRUARY 2022 Current Complaints right lateral and posterior hip pain History of Current Condition Reports february 2022 was doing a lot of hiking and felt onset posterior thigh pain right. Spent the rest of the summer in pain, tried ice and heat, some rest. Unable to alternate feet on stairs and leaned heavily to the right. Pain worse with sitting or walking uneven ground. Also reports prior fall onto lateral hip right and has had residual pain ever since. Reports she has had some improvement in her pain but still has pain especially with gait on stairs or uneven ground and has difficulty moving from sit to stand, feels very weak. Prior Treatments and Tests no imaging Future Testing and Treatments Planned to return to physician if PT not helpful PT-OP-C Subjective Start: 07/28/22 08:51 Freq: Status: Active Protocol: Document 08/30/22 13:33 [facility] (Rec: 08/30/22 14:31 [facility] [id number]) OP-PT Subjective Patient Comments Patient Comments Much more aware of alignment PT-OP-G Mobility & Gait Start: 07/28/22 08:51 Freq: Status: Active Protocol: Document 07/28/22 17:25 [facility] (Rec: 08/01/22 09:41 [facility] [id number]) OP Gait Assessment Gait Gait Assistance Required: Independent Assistive Devices Assistive Device None Gait Deviations General Gait Pattern Antalgic,Decreased Stride Length Stair Climbing Evaluation Technique/Endurance Stair Climbing Direction Ascend and Descend Stair Climbing Technique Step to Step PT-OP-H Neuro Start: 07/28/22 08:51 Freq: Status: Active Protocol: Document 07/28/22 17:25 [facility] (Rec: 08/01/22 09:41 [facility] [id number]) Sensation Evaluation Gross Sensation Gross Sensation WNL PT-OP-J Posture/Palpation/Skin Start: 07/28/22 08:51 Freq: Status: Active Protocol: Document 07/28/22 17:25 [facility] (Rec: 08/01/22 09:41 [facility] [id number]) Posture Evaluation Position Standing Head/C-Spine Posture Forward Head T-Spine Posture Increased Kyphosis L-Spine Posture Increased Lordosis Shoulder Posture (L) Rounded,(R) Rounded Scapula Posture (L) Protracted,(R) Protracted Arm Posture (L) Internally Rotated,(R) Internally Rotated Pelvis Posture Anteriorly Tilted Weight Distribution Weight Shifted Right Palpation Assessment Location HS Palpation Location right Palpation Findings Tenderness gr trochanter Palpation Location right Palpation Findings Tenderness PSIS Palpation Location non tender PT-OP-K Range of Motion Start: 07/28/22 08:51 Freq: Status: Active Protocol: Document 07/28/22 17:25 [facility] (Rec: 08/01/22 09:41 [facility] [id number]) Lumbar Spine Range of Motion Lumbar Spine Active Comments WFL Hip Goniometric Range of Motion Hip Right Hip ROM WFL No Flexion w/Knee Flexed 110 Straight Leg Raise 65 Extension 10 Abduction 25 Internal Rotation 20 External Rotation 55 Left Hip ROM WFL Yes Hip ROM Limitations Hip ROM Limitations Soft Tissue Tightness,Pain Knee Goniometric Range of Motion Knee jane Knee ROM WFL Yes PT-OP-M Strength Start: 07/28/22 08:51 Freq: Status: Active Protocol: Document 07/28/22 17:25 [facility] (Rec: 08/01/22 09:41 [facility] [id number]) Hip Strength Hip Manual Muscle Testing Right Flexion (L2) 4 Good Extension (S1) 4 Good Adduction 4+ Good+ External Rotation 4- Good- Internal Rotation 4 Good Left Flexion (L2) 4+ Good+ Extension (S1) 4+ Good+ Abduction 4+ Good+ Adduction 4+ Good+ External Rotation 4 Good Internal Rotation 4+ Good+ Knee Strength Knee Manual Muscle Testing Right Flexion (S2) 4 Good Extension (L3) 4 Good Left Flexion (S2) 4+ Good+ Extension (L3) 4+ Good+ PT-OP-Q Treatments Start: 07/28/22 08:51 Freq: Status: Active Protocol: Document 08/30/22 13:33 [facility] (Rec: 08/30/22 14:31 [facility] [id number]) Cardio Equipment Recumbent Stepper (Sci-Fit) Duration (Minutes) 10 Resistance 2.2 Seat Position 10 Other good push through heels, 57-60 RPM, 1.36 miles Gym Equipment Shuttle Balance red Details WBOS,NBOS,EC,HTs, staggered Reps/Duration 12' Comments Improved balance with cues for glute, core act, self-cueing for pretending she's on a swing. Therapeutic Exercises Supine Exercises single leg bridge Supine Exercise Name Segmental hipe then leg lift Side bilateral Reps/Minutes 10x Comments Cues for sequencing, minimal lift bridge Reps/Minutes 10x Comments Cues TA activation, greater lift HS stretch Supine Exercise Name also ITB Equipment Used strap Reps/Minutes 2x30 Comments good form, stretch response Sitting Exercises sit to stand Equipment Used 18 mat table Reps/Minutes x20 Comments Good form and carryover fro previous session Standing Exercises tandem stand Reps/Minutes 3x10 SLS Reps/Minutes 3x5 Gait Training Gait Activity stairs Description 4, 6 Level of Assistance SBA, verbal cues Distance/Duration 2x each Treatment Focus controlled movement, gluteal activation Comments cues for dec UE support PT-OP-R Modalities Start: 07/28/22 08:51 Freq: Status: Active Protocol: Document 08/04/22 14:31 [facility] (Rec: 08/04/22 15:29 [facility] [id number]) Hot Pack/Cold Pack Treatment Hot Pack Location right hamstring Patient Position Hooklying Treatment Duration (minutes) 15 Patient Tolerance Good PT-OP-T Assessment and Plan Start: 07/28/22 08:51 Freq: Status: Active Protocol: Document 08/30/22 13:33 [facility] (Rec: 08/30/22 14:31 [facility] [id number]) Physical Therapy Assessment Goals Three Impairment weakness in right hip and knee Short Term Goal (STG) patient to be instructed in HEP to address impairments and support therapy activities 08/16/22: HEP seated resisted HS curl, HS stretch, side: clam/reverse, abd, clamshell, supine: isometric adduction, bridge, STS 16-17.5 folding chair x10. STG Duration 08/26/22 progressing 08/16/22 Longterm Goal (LTG) Patient will be independent and compliant with HEP and demonstrate LE strength improvement to 5/5 to allow her to return to all prior activities with ease LTG Duration 09/26/22 Two Impairment gait dysfunction/activity tolerance Impairment unable to ambulate on uneven surfaces without pain Short Term Goal (STG) Patient will be able to ambulate on stairs with alternating pattern with minimal to no pain STG Duration 08/26/22 Longterm Goal (LTG) Patient will be able to resume hiking on uneven ground with minimal to no pain LTG Duration 09/26/22 One Impairment pain right lateral and posterior hip limiting mobility Short Term Goal (STG) Decrease pain by at least 50% to allow improved mobility STG Duration 08/27/22 Batch Tank Controller Goal (LTG) Decrease pain by at least 75% to allow patient to improve her mobility and activity level LTG Duration 09/27/22 Assessment Summary Assessment Improving balance, functional strength, body mechanics. Progressed shuttle balance, added SLS and tandem stand to HEP. Able to lift higher with single leg bridge. Physical Therapy Plan Frequency and Duration Frequency of Treatment 2x/Week Duration of treatment (weeks) 8 Plan of Care Start Date 07/28/22 Plan of Care End Date 10/26/22 Therapeutic Interventions Therapeutic Interventions Aquatic Therapy,Gait Training, Home Exercise Program,Manual Therapy,Neuromuscular Re- education,Patient/Caregiver Education,Self-Care/Home Management,Soft Tissue Mobilization,Taping, Therapeutic Activities, Therapeutic Exercises Modalities Cold Pack/Ice Massage,Electric Stimulation,Hot Packs, Infrared Therapy,Iontophoresis ,Ultrasound Next Visit Focus/Plan Next Note Type Treatment Note Next Visit Plan Patient to be gone for a few weeks, will see her in September to reassess, update HEP, determine need for further PT.
--- NOTE | 2022-10-03 16:14 | PT.OTN ---
Current Diagnoses Enthesopathy, unspecified (10/03/22) Physical Therapy Treatment Note PT-OP-A Visit Information Start: 07/28/22 08:51 Freq: Status: Active Protocol: Document 10/03/22 15:16 [facility] (Rec: 10/03/22 16:14 [facility] [id number]) Out-Patient Physical Therapy Visit Information Visit Information Visit Type Treatment Note Visit Start Time 15:16 Visit Stop Time 16:00 Total Visit Minutes 44 Visit Number 10 Number of STEEL GRINDER Visits 0 PT-OP-B Current Condition Start: 07/28/22 08:51 Freq: Status: Active Protocol: Document 08/11/22 11:16 [facility] (Rec: 08/11/22 11:53 [facility] [id number]) Current Condition History of Current Condition Onset Date FEBRUARY 2022 Current Complaints right lateral and posterior hip pain History of Current Condition Reports february 2022 was doing a lot of hiking and felt onset posterior thigh pain right. Spent the rest of the summer in pain, tried ice and heat, some rest. Unable to alternate feet on stairs and leaned heavily to the right. Pain worse with sitting or walking uneven ground. Also reports prior fall onto lateral hip right and has had residual pain ever since. Reports she has had some improvement in her pain but still has pain especially with gait on stairs or uneven ground and has difficulty moving from sit to stand, feels very weak. Prior Treatments and Tests no imaging Future Testing and Treatments Planned to return to physician if PT not helpful PT-OP-C Subjective Start: 07/28/22 08:51 Freq: Status: Active Protocol: Document 10/03/22 15:16 [facility] (Rec: 10/03/22 16:14 [facility] [id number]) OP-PT Subjective Patient Comments Patient Comments Patient reports she sees improvement, fair compliance to HEP over holidays. Wouldn' t go walking or hiking without her poles. Can balance on single leg up to 8 seconds now . Sees the benefit of her exercises. Can get to 10 sit to stands but real good for 7 or 8 PT-OP-G Mobility & Gait Start: 07/28/22 08:51 Freq: Status: Active Protocol: Document 07/28/22 17:25 [facility] (Rec: 08/01/22 09:41 [facility] [id number]) OP Gait Assessment Gait Gait Assistance Required: Independent Assistive Devices Assistive Device None Gait Deviations General Gait Pattern Antalgic,Decreased Stride Length Stair Climbing Evaluation Technique/Endurance Stair Climbing Direction Ascend and Descend Stair Climbing Technique Step to Step PT-OP-H Neuro Start: 07/28/22 08:51 Freq: Status: Active Protocol: Document 07/28/22 17:25 [facility] (Rec: 08/01/22 09:41 [facility] [id number]) Sensation Evaluation Gross Sensation Gross Sensation WNL PT-OP-J Posture/Palpation/Skin Start: 07/28/22 08:51 Freq: Status: Active Protocol: Document 07/28/22 17:25 [facility] (Rec: 08/01/22 09:41 [facility] [id number]) Posture Evaluation Position Standing Head/C-Spine Posture Forward Head T-Spine Posture Increased Kyphosis L-Spine Posture Increased Lordosis Shoulder Posture (L) Rounded,(R) Rounded Scapula Posture (L) Protracted,(R) Protracted Arm Posture (L) Internally Rotated,(R) Internally Rotated Pelvis Posture Anteriorly Tilted Weight Distribution Weight Shifted Right Palpation Assessment Location HS Palpation Location right Palpation Findings Tenderness gr trochanter Palpation Location right Palpation Findings Tenderness PSIS Palpation Location non tender PT-OP-K Range of Motion Start: 07/28/22 08:51 Freq: Status: Active Protocol: Document 07/28/22 17:25 [facility] (Rec: 08/01/22 09:41 [facility] [id number]) Lumbar Spine Range of Motion Lumbar Spine Active Comments WFL Hip Goniometric Range of Motion Hip Right Hip ROM WFL No Flexion w/Knee Flexed 110 Straight Leg Raise 65 Extension 10 Abduction 25 Internal Rotation 20 External Rotation 55 Left Hip ROM WFL Yes Hip ROM Limitations Hip ROM Limitations Soft Tissue Tightness,Pain Knee Goniometric Range of Motion Knee jane Knee ROM WFL Yes PT-OP-M Strength Start: 07/28/22 08:51 Freq: Status: Active Protocol: Document 07/28/22 17:25 [facility] (Rec: 08/01/22 09:41 [facility] [id number]) Hip Strength Hip Manual Muscle Testing Right Flexion (L2) 4 Good Extension (S1) 4 Good Adduction 4+ Good+ External Rotation 4- Good- Internal Rotation 4 Good Left Flexion (L2) 4+ Good+ Extension (S1) 4+ Good+ Abduction 4+ Good+ Adduction 4+ Good+ External Rotation 4 Good Internal Rotation 4+ Good+ Knee Strength Knee Manual Muscle Testing Right Flexion (S2) 4 Good Extension (L3) 4 Good Left Flexion (S2) 4+ Good+ Extension (L3) 4+ Good+ PT-OP-Q Treatments Start: 07/28/22 08:51 Freq: Status: Active Protocol: Document 10/03/22 15:16 [facility] (Rec: 10/03/22 16:14 [facility] [id number]) Cardio Equipment Recumbent Stepper (Sci-Fit) Duration (Minutes) 10 Resistance 2.2 Seat Position 10 Other good push through heels, 57-60 RPM, 1.36 miles Gym Equipment Shuttle Balance red Details WBOS,NBOS,EC,HTs, staggered Reps/Duration 12' Therapeutic Exercises Supine Exercises single leg bridge Supine Exercise Name Segmental hipe then leg lift Side bilateral Reps/Minutes 10x Comments Cues for sequencing, minimal lift Sitting Exercises sit to stand Equipment Used 18 mat table Reps/Minutes x20 Comments Good form and carryover fro previous session Standing Exercises tandem stand Reps/Minutes 3x10 SLS Reps/Minutes 3x5 PT-OP-R Modalities Start: 07/28/22 08:51 Freq: Status: Active Protocol: Document 08/04/22 14:31 [facility] (Rec: 08/04/22 15:29 [facility] [id number]) Hot Pack/Cold Pack Treatment Hot Pack Location right hamstring Patient Position Hooklying Treatment Duration (minutes) 15 Patient Tolerance Good PT-OP-T Assessment and Plan Start: 07/28/22 08:51 Freq: Status: Active Protocol: Document 10/03/22 15:16 [facility] (Rec: 10/03/22 16:14 [facility] [id number]) Physical Therapy Assessment Goals Three Impairment weakness in right hip and knee Short Term Goal (STG) patient to be instructed in HEP to address impairments and support therapy activities 08/16/22: HEP seated resisted HS curl, HS stretch, side: clam/reverse, abd, clamshell, supine: isometric adduction, bridge, STS 16-17.5 folding chair x10. STG Duration 08/26/22 progressing 08/16/22 Assisted Goal (LTG) Patient will be independent and compliant with HEP and demonstrate LE strength improvement to 5/5 to allow her to return to all prior activities with ease LTG Duration goal met Two Impairment gait dysfunction/activity tolerance Impairment unable to ambulate on uneven surfaces without pain Short Term Goal (STG) Patient will be able to ambulate on stairs with alternating pattern with minimal to no pain STG Duration goal met Assisted Goal (LTG) Patient will be able to resume hiking on uneven ground with minimal to no pain 10/03/22: goal met, uses trekking poles LTG Duration goal met One Impairment pain right lateral and posterior hip limiting mobility Short Term Goal (STG) Decrease pain by at least 50% to allow improved mobility STG Duration goal met Assisted Goal (LTG) Decrease pain by at least 75% to allow patient to improve her mobility and activity level 10/03/22: improved by 90% LTG Duration goal met Assessment Summary Assessment Patient has met all goals, HEP was updated for further challenge. Ready for discharge from PT. Patient in agreement. Physical Therapy Plan Frequency and Duration Frequency of Treatment 2x/Week Duration of treatment (weeks) 8 Plan of Care Start Date 07/28/22 Plan of Care End Date 10/26/22 Therapeutic Interventions Therapeutic Interventions Aquatic Therapy,Gait Training, Home Exercise Program,Manual Therapy,Neuromuscular Re- education,Patient/Caregiver Education,Self-Care/Home Management,Soft Tissue Mobilization,Taping, Therapeutic Activities, Therapeutic Exercises Modalities Cold Pack/Ice Massage,Electric Stimulation,Hot Packs, Infrared Therapy,Iontophoresis ,Ultrasound Discharge Physical Therapy Discharge Reasons Goals Met
== END 2022-10-04 10:13 | disposition home or self-care (01) ==
LOC: PHYS 15:15
PROVIDERS: PCP Family Medicine; Referring Provider Family Medicine; Visit Provider Family Medicine
DX: M77.9 Enthesopathy, unspecified (principal)
CPT/HCPCS: 97110; 97112; 97161; 97535

== ENCOUNTER → 2022-10-25 13:26 | Outpatient (CLI) | payer MEDICARE, OTHER, SELFPAY ==
--- NOTE | 2022-10-25 | DI.MG.S_ITS ---
BILATERAL DIGITAL SCREENING MAMMOGRAM 3D/2D WITH CAD: 10/25/2022 CLINICAL: Routine screening. Family history of breast cancer. Comparison is made to exams dated: 10/18/2021 mammogram, 10/15/2020 mammogram, and 10/14/2019 mammogram - [facility]. There are scattered areas of fibroglandular density in both breasts (category b / 25%-50% glandular tissue). Current study was also evaluated with a Computer Aided Detection (CAD) system. There are benign calcifications in the left breast. There also are benign vascular calcifications in the right breast. Additionally, there are benign post operative findings in the left breast. No significant masses, calcifications, or other findings are seen in either breast. There has been no significant interval change. IMPRESSION: BENIGN There is no mammographic evidence of malignancy. A 1 year screening mammogram is recommended. Based on the Tyrer Cuzick model (a risk assessment model) the patient's lifetime risk is 9.7% and her 10 year risk is 9.7%. According to the ACR, ACS, and NCCN guidelines, an annual breast MRI exam along with mammogram is recommended if the patient's lifetime risk is 20% or greater. This exam was interpreted at Station ID: [id number]. NOTE: For mammograms, a report in lay terms will be sent to the patient. Approximately 15% of breast malignancies will not be visualized mammographically. In the management of a palpable breast mass, a negative mammogram must not discourage biopsy of a clinically suspicious lesion. Electronically Signed By: Aleyda roche/jose:10/25/2022 16:29:24 letter sent: Normal Exam ACR BI-RADS Category 2: Benign Finding(s) [id number]
== END ==
PROVIDERS: PCP Family Medicine; Referring Provider Family Medicine; Visit Provider Family Medicine
DX: Z12.31 Encounter for screening mammogram for malignant neoplasm of breast (principal); Z80.3 Family history of malignant neoplasm of breast
CPT/HCPCS: 77063; 77067

== ENCOUNTER → 2022-12-01 11:45 | Outpatient (CLI) | payer MEDICARE, OTHER, SELFPAY ==
[2022-12-01 12:32] LABS: Hematocrit 39.7 % (36-46); Hemoglobin 13.1 g/dL (12.0-16.0); Mean Corpuscular HGB Conc 33.1 % (30-36); Mean Corpuscular Hemoglobin 29.3 PG (26-34); Mean Corpuscular Volume 88.5 fL (80-100); Platelet Count 198 X10^3/uL (150-400); Red Blood Cell Count 4.48 X10^6/uL (4.0-5.2); Red Cell Distribution Width 14.2 % (11.6-14.8); White Blood Cell Count 5.4 X10^3/uL (4.5-11.0)
[2022-12-01 12:56] LABS: Hemoglobin A1C% w Est Avg Glu 6.3 % (4.0-6.0)
[2022-12-01 13:02] LABS: Alanine Aminotransferase 22 IU/L (<35); Albumin 4.3 g/dL (3.5-5.0); Albumin Globulin Ratio 1.5 (1.0-2.8); Alkaline Phosphatase 107 U/L (38-126); Aspartate Aminotransferase 24 IU/L (14-36); BUN Creatinine Ratio 29.2 (6-22); Bilirubin Total 0.6 mg/dL (0.2-1.3); Blood Urea Nitrogen 21 mg/dL (7-17); Calcium 9.7 mg/dL (8.4-10.2); Carbon Dioxide 25 mmol/L (22-32); Chloride 103 mmol/L (98-107); Cholesterol 161 mg/dL (140-199); Estimated Glomerular Filt Rate > 60 mL/min (>60); Globulin 2.8 g/dL (1.7-4.1); Glucose 107 mg/dL (80-110); HDL Cholesterol 58 mg/dL (40-60); HEMOLYSIS < 15 (0-50); LDL Cholesterol Calculated 76 mg/dL (<100); Potassium 4.2 mmol/L (3.4-5.1); Sodium 136 mmol/L (137-145); Total Protein 7.1 g/dL (6.3-8.2); Triglycerides 136 mg/dL (35-150)
[2022-12-01 13:33] LABS: TSH w/ Reflex to FT4 3.42 uIU/mL (0.47-4.68)
== END ==
PROVIDERS: PCP Family Medicine; Referring Provider Family Medicine; Visit Provider Family Medicine
DX: R73.01 Impaired fasting glucose (principal); E78.5 Hyperlipidemia, unspecified; D64.9 Anemia, unspecified; E03.9 Hypothyroidism, unspecified
CPT/HCPCS: 36415; 80053; 80061; 83036; 84443; 85027

== ENCOUNTER → 2023-05-31 10:42 | Outpatient (CLI) | payer MEDICARE, OTHER, SELFPAY ==
[2023-05-31 12:38] LABS: Add Manual Diff / Slide Review NO; Basophils Absolute Auto 100 /uL (0-100); Basophils Percent Auto 1.1 % (0-2); Eosinophils Absolute Auto 100 /uL (0-450); Eosinophils Percent Auto 1.7 % (2-4); Hematocrit 39.6 % (36-46); Hemoglobin 13.2 g/dL (12.0-16.0); Lymphocytes Absolute Auto 1800 /uL (1100-4500); Lymphocytes Percent Auto 35.4 % (25-40); Mean Corpuscular HGB Conc 33.4 % (30-36); Mean Corpuscular Hemoglobin 29.7 PG (26-34); Mean Corpuscular Volume 89.1 fL (80-100); Monocytes Absolute Auto 400 /uL (0-900); Monocytes Percent Auto 7.4 % (3-14); Neutrophils Absolute Auto 2800 /uL (1500-7000); Neutrophils Percent Auto 54.4 % (50-75); Platelet Count 174 X10^3/uL (150-400); Red Blood Cell Count 4.44 X10^6/uL (4.0-5.2); Red Cell Distribution Width 13.8 % (11.6-14.8); White Blood Cell Count 5.1 X10^3/uL (4.5-11.0)
[2023-05-31 13:10] LABS: Hemoglobin A1C% w Est Avg Glu 6.2 % (4.0-6.0)
[2023-05-31 13:13] LABS: Alanine Aminotransferase 25 IU/L (<35); Albumin 4.1 g/dL (3.5-5.0); Albumin Globulin Ratio 1.5 (1.0-2.8); Alkaline Phosphatase 84 U/L (38-126); Aspartate Aminotransferase 30 IU/L (14-36); BUN Creatinine Ratio 22.2 (6-22); Bilirubin Total 0.5 mg/dL (0.2-1.3); Blood Urea Nitrogen 16 mg/dL (7-17); Calcium 9.7 mg/dL (8.4-10.2); Carbon Dioxide 24 mmol/L (22-32); Chloride 102 mmol/L (98-107); Cholesterol 176 mg/dL (140-199); Estimated Glomerular Filt Rate > 60 mL/min (>60); Globulin 2.8 g/dL (1.7-4.1); Glucose 115 mg/dL (80-110); HDL Cholesterol 56 mg/dL (40-60); HEMOLYSIS < 15 (0-50); LDL Cholesterol Calculated 92 mg/dL (<100); Potassium 4.2 mmol/L (3.4-5.1); Sodium 135 mmol/L (137-145); Total Protein 6.9 g/dL (6.3-8.2); Triglycerides 139 mg/dL (35-150)
[2023-05-31 13:49] LABS: TSH w/ Reflex to FT4 3.99 uIU/mL (0.47-4.68)
== END ==
PROVIDERS: PCP Family Medicine; Referring Provider Family Medicine; Visit Provider Family Medicine
DX: R73.01 Impaired fasting glucose (principal); E78.5 Hyperlipidemia, unspecified; D64.9 Anemia, unspecified; E03.9 Hypothyroidism, unspecified
CPT/HCPCS: 36415; 80053; 80061; 83036; 84443; 85025

== ENCOUNTER → 2023-09-05 10:32 | Outpatient (CLI) | payer MEDICARE, OTHER, SELFPAY ==
[2023-09-05 11:26] LABS: Hemoglobin A1C% w Est Avg Glu 6.2 % (4.0-6.0)
[2023-09-05 11:57] LABS: Free T4, Direct Thyroxine 1.81 ng/dL (0.78-2.19)
[2023-09-05 12:11] LABS: Thyroid Stimulating Hormone 0.258 uIU/mL (0.47-4.68)
== END ==
PROVIDERS: PCP Family Medicine; Referring Provider Family Medicine; Visit Provider Family Medicine
DX: R73.01 Impaired fasting glucose (principal); E03.9 Hypothyroidism, unspecified; E78.00 Pure hypercholesterolemia, unspecified; G47.33 Obstructive sleep apnea (adult) (pediatric); K21.9 Gastro-esophageal reflux disease without esophagitis
CPT/HCPCS: 36415; 83036; 84439; 84443

== ENCOUNTER → 2023-11-01 11:40 | Outpatient (CLI) | payer MEDICARE, OTHER, SELFPAY ==
--- NOTE | 2023-11-01 | DI.MG.S_ITS ---
BILATERAL DIGITAL SCREENING MAMMOGRAM 3D/2D WITH CAD: 11/01/2023 CLINICAL: Routine screening. Family history of breast cancer. Comparison is made to exams dated: 10/25/2022 mammogram, 10/18/2021 mammogram, and 10/15/[address] - [facility]. There are scattered areas of fibroglandular density in both breasts (category b / 25%-50% glandular tissue). Current study was also evaluated with a Computer Aided Detection (CAD) system. There are benign calcifications in the left breast. There also are benign vascular calcifications in the right breast. Additionally, there are benign post operative findings in the left breast. No significant masses, calcifications, or other findings are seen in either breast. There has been no significant interval change. IMPRESSION: BENIGN There is no mammographic evidence of malignancy. A 1 year screening mammogram is recommended. Based on the Tyrer Cuzick model (a risk assessment model) the patient's lifetime risk is 8.9% and her 10 year risk is 0.0%. According to the ACR, ACS, and NCCN guidelines, an annual breast MRI exam along with mammogram is recommended if the patient's lifetime risk is 20% or greater. This exam was interpreted at Station ID: [id number]. NOTE: For mammograms, a report in lay terms will be sent to the patient. Approximately 15% of breast malignancies will not be visualized mammographically. In the management of a palpable breast mass, a negative mammogram must not discourage biopsy of a clinically suspicious lesion. Electronically Signed By: Breonna tomas/jose:11/01/2023 14:15:18 letter sent: Normal Exam ACR BI-RADS Category 2: Benign Finding(s) [id number]
== END ==
LOC: MAMMO 11:41
PROVIDERS: PCP Family Medicine; Referring Provider Family Medicine; Visit Provider Family Medicine
DX: Z12.31 Encounter for screening mammogram for malignant neoplasm of breast (principal); R92.30 Dense breasts, unspecified
CPT/HCPCS: 77063; 77067

== ENCOUNTER → 2024-04-05 11:46 | Outpatient (CLI) | payer MEDICARE, OTHER, SELFPAY ==
--- NOTE | 2024-04-05 11:49 | DI.RAD.S_ITS ---
PROCEDURE: XR DEXA AXIAL SKELETON INDICATIONS: OSTEOPENIA COMPARISON: [facility], CR, XR DEXA AXIAL SKELETON, 01/17/2022, 11:47. FINDINGS: Lumbar Spine: Bone mineral density 0.880 g/cm2, T score -1.5. There is interval 0.2 percent decrease in total lumbar spine bone density. Left Hip: Bone mineral density 0.661 g/cm2, T score -2.3. There is interval 8.2 percent decrease in left total hip bone mineral density. Left Femoral Neck: Bone mineral density 0.660 g/cm2, T score -1.7. There is interval 3.5 percent decrease in left femoral neck bone mineral density. Right Hip: Bone mineral density 0.734 g/cm2, T score -1.7. There is interval 4.7 percent decrease in right total hip bone mineral density. Right Femoral Neck: Bone mineral density 0.667 g/cm2, T score -1.6. There is interval 8 percent decrease in right femoral neck bone mineral density. Fracture Risk Calculation (when applicable): 10-year fracture risk of a major osteoporotic fracture 12 percent and of a hip fracture 2.7 percent. (T score greater or equal to -1.0 to: NORMAL) (T score from -1.1 to -2.4: OSTEOPENIA) (T score less than or equal to -2.5: OSTEOPOROSIS) IMPRESSION: Osteopenia with increased 10 year fracture risk as above. Follow-up guidelines as follows: Osteoporosis: Consider a repeat DEXA and Vertebral Fracture Assessment (VFA) exam in 2 years or sooner if medically necessary, to reassess this patient's status. Osteopenia: Consider a repeat DEXA in 2-3 years to reassess this patient's status, or if there is a new clinical indication. Normal: Consider a repeat DEXA in 5 years or sooner, or if there is a new clinical indication. All treatment decisions require clinical judgment and consideration of individual patient factors, including patient preferences, comorbidities, previous drug use, risk factors not captured in the FRAX model (e.g., frailty, falls, vitamin D deficiency, increased bone turnover, interval significant decline in bone density ) and possible under- or over-estimation of fracture risk by FRAX. In addition, the NOF Guide recommends that FDA-approved medical therapies be considered in postmenopausal women and men age >= 50 years with a: * Hip or vertebral (clinical or morphometric) fracture * T-score of <=-2.5 at the spine or hip * Ten-year fracture probability by FRAX of >= 3% for hip fracture or >=20% for major osteoporotic fracture. People with diagnosed cases of osteoporosis or at high risk for fracture should have regular bone mineral density tests. For patients eligible for Medicare, routine testing is allowed once every 2 years. The testing frequency can be increased to one year for patients who have rapidly progressing disease, those who are receiving or discontinuing medical therapy to restore bone mass, or have additional risk factors. Dictated by: Glen Parker M.D. on 04/05/2024 at 14:20 Approved by: Glen Parker M.D. on 04/05/2024 at 14:22
== END ==
LOC: RAD 11:47
PROVIDERS: PCP Family Medicine; Referring Provider Family Medicine; Visit Provider Family Medicine
DX: M85.89 Other specified disorders of bone density and structure, multiple sites (principal)
CPT/HCPCS: 77080

== ENCOUNTER → 2024-11-15 13:56 | Outpatient (CLI) | payer MEDICARE, OTHER, SELFPAY ==
--- NOTE | 2024-11-15 13:57 | DI.MG.S_ITS ---
BILATERAL DIGITAL SCREENING MAMMOGRAM 3D/2D WITH CAD: 11/15/2024 CLINICAL: Routine screening. Family history of breast cancer. Comparison is made to exams dated: 11/01/2023 mammogram, 10/25/2022 mammogram, and 10/18/2021 mammogram - [facility]. There are scattered areas of fibroglandular density (category b / 25%-50% glandular tissue). Current study was also evaluated with a Computer Aided Detection (CAD) system. There are benign calcifications in the left breast. There also are benign vascular calcifications in the right breast. Additionally, there are benign post operative findings in the left breast. No significant masses, calcifications, or other findings are seen in either breast. There has been no significant interval change. IMPRESSION: BENIGN There is no mammographic evidence of malignancy. A 1 year screening mammogram is recommended. Based on the Tyrer Cuzick model (a risk assessment model) the patient's lifetime risk is 8.1% and her 10 year risk is 0.0%. According to the ACR, ACS, and NCCN guidelines, an annual breast MRI exam along with mammogram is recommended if the patient's lifetime risk is 20% or greater. This exam was interpreted at Station ID: [id number]. NOTE: For mammograms, a report in lay terms will be sent to the patient. Approximately 15% of breast malignancies will not be visualized mammographically. In the management of a palpable breast mass, a negative mammogram must not discourage biopsy of a clinically suspicious lesion. Electronically Signed By: Aleyda roche/jose:11/15/2024 16:40:05 letter sent: Normal Exam ACR BI-RADS Category 2: Benign
== END ==
PROVIDERS: PCP Family Medicine; Referring Provider Family Medicine; Visit Provider Family Medicine
DX: Z12.31 Encounter for screening mammogram for malignant neoplasm of breast (principal); Z80.3 Family history of malignant neoplasm of breast
CPT/HCPCS: 77063; 77067